=== PATIENT | male | born 1940 | race Caucasian/White ===

== ENCOUNTER → 2018-07-15 16:07 | Outpatient (CLI) | payer MEDICARE, OTHER, SELFPAY ==
[2018-07-15 19:30] LABS: ALB/GLOB Ratio 1.1 RATIO (0.9-2.4); AST(SGOT) 29 U/L (15-37); Alanine Aminotransfer ALT/SGPT 47 U/L (16-61); Alkaline Phosphatase 125 U/L (45-117); Anion Gap 12 (5-15); BUN 13 mg/dL (7-18); BUN/Creat Ratio 12.7 RATIO (10-20); Calcium,Total 9.3 mg/dL (8.5-10.1); Chloride 105 mmol/L (98-107); Creatinine, Serum 1.02 mg/dL (0.70-1.30); EST Glomerular Filtration Rate 75 mL/min (>60); Est Glom Filt Rate - Afr Amer 91 mL/min (>60); Estradiol 30.1 pg/mL; Free T3 2.7 pg/mL (2.18-3.98); Globulin 3.7 g/dL (2.2-4.2); Glucose 86 mg/dL (74-106); Potassium 3.8 mmol/L (3.5-5.1); Protein, Total 7.7 g/dL (6.4-8.2); Sodium Level 142 mmol/L (136-145); T4 Free Direct 1.04 ng/dL (0.76-1.46); Thyroid Stim Hormone (TSH) 1.19 uIU/mL (0.358-3.74)
[2018-07-17 11:25] LABS: Thyroid Peroxidase AB 10 IU/mL (0-34)
== END ==
DX: I10 Essential (primary) hypertension (principal); E03.9 Hypothyroidism, unspecified; Z12.5 Encounter for screening for malignant neoplasm of prostate
CPT/HCPCS: 36415; 80053; 82670; 84153; 84402; 84403; 84439; 84443; 84481; 86376; G0103

== ENCOUNTER 2018-07-31 01:37 | Emergency (ER) | payer MEDICARE, OTHER, SELFPAY ==
[2018-07-31 01:43] VITALS: BP 183/140; PULSE 108; PULSE 114; RESP 18; TEMP 36.8; O2SAT 97; O2SAT 98; BMI 30.8
[2018-07-31] MEDS: Oxymetazoline 0.05% 1 SPRAY SPRAY.BTL 2 SPRAY NASAL (02:10)
--- NOTE | 2018-07-31 02:30 | ED.VISSUMM ---
- ER Visit Summary Date of Service: 07/31/18 Chief Complaint: Nosebleed History of Present Illness: The patient is a 77 M who presents with a nosebleed. He has no known medical history. He began have a nosebleed from the left side 2 hours ago. He has a history of severe nosebleeds previously but not in many years. He believes last episode was 6-7 years ago. He also noted that his blood pressure was elevated at home and on presentation to triage here. He attributes this to a recent high salt intake. He denies headache chest pain or shortness of breath. He denies dizziness. He is on no anticoagulation. Physical Examination: Afebrile initial blood pressure 183/140 initial heart rate 114 There is left-sided epistaxis this appears to be coming from some irritation along the nasal septum Heart regular rate and rhythm Lungs are clear Abdomen soft Alert No focal or lateralizing neurological deficits Test Results: Not indicated Emergency Department Course and Treatment: An Afrin-soaked cotton ball was placed in the left nostril. On reevaluation there continues to be some mild oozing so an anterior Rhino Rocket 5.5 cm packing was placed and hemostasis achieved. He has been monitored and has had no further bleeding. His blood pressure is improved to 143/108. He was advised of his elevated blood pressure and the need to follow-up as an outpatient. Given that he has no headache chest pain or shortness of breath I do not feel any further evaluation is necessary for this. He does understand return for new or worsening symptoms. He was referred to otolaryngology for epistaxis follow-up. Treatment Plan: [] Disposition: Discharge Impression: Elevated blood pressure Epistaxis This note was generated with [employer] dictation software. It may contain incorrect words, spelling, and punctuation that were not noted in review of the chart prior to signing ED Disposition - Plan for ED Patient: Chief Complaint: Nosebleed Referrals: [facility] Doctor,Out of [Primary Care Provider] -
--- NOTE | 2018-07-31 02:34 | DCINST.ED_ITS ---
ED Disposition - Plan for ED Patient: Chief Complaint: Nosebleed Instructions: Nosebleed, ED Hypertension Poss Referrals: [facility] Doctor,Out of [Primary Care Provider] - Nam Shipley MD [STAFF PHYSICIAN] -
[2018-07-31] MEDS: Acetaminophen 500 MG Tablet 1000 MG PO (02:41)
[2018-07-31 03:23] VITALS: BP 130/83; PULSE 90; RESP 22; O2SAT 95
== END 2018-07-31 03:24 | disposition home or self-care (01) ==
PROVIDERS: Emergency Provider Emergency Medicine
DX: R03.0 Elevated blood-pressure reading, without diagnosis of hypertension (principal); R04.0 Epistaxis
CPT/HCPCS: 30901; 99282

== ENCOUNTER 2018-08-02 14:37 | Emergency (ER) | payer MEDICARE, OTHER, SELFPAY ==
[2018-08-02 14:38] VITALS: BP 168/100; PULSE 84; RESP 16; TEMP 36.8; O2SAT 99; BMI 29.8
--- NOTE | 2018-08-02 15:14 | ED.VISSUMM ---
- ER Visit Summary Date of Service: 08/02/18 Chief Complaint: Nasal foreign body History of Present Illness: The patient is a 77 M who was here 2 days ago with a nosebleed and had a rapid Rhino placed in his left nares. Reports that yesterday he removed this. Today he was cleaning up his nose and believes that there is a foreign body present in his nose. He denies any pain. No drainage. No fever or chills. Physical Examination: Vitals: Stable. Afebrile. General: Well-nourished and well-developed. Head: Normocephalic atraumatic. HEENT: The superior portion of the nasal cavity there is what appears to be a foreign body. There is no bleeding. There is no clot. Neck: Supple, no lymphadenopathy. No JVD. Nontender. Cardiovascular: Regular rate and rhythm. No murmurs. Respiratory: No respiratory distress. Clear to auscultation bilaterally. Abdominal: Soft, nontender, nondistended, normal bowel sounds. No guarding, rebound, or peritoneal signs. Back: Nontender. Extremities: Nontender, no edema. Skin: Normal color, no rash. Neurologic: Alert and oriented ?3. Cranial nerves II through XII are intact. Normal strength and sensation. Psych: Normal affect. Emergency Department Course and Treatment: I attempted to remove the foreign body with forceps and hard mucus is what returned. The patient blew his nose and on repeat exam the foreign body had completely resolved. There is still no bleeding. Treatment Plan: I discussed the patient that if there is a foreign body that is not visible at this point that he will likely have malodorous, purulent drainage from the left nares. He is instructed to follow-up with Dr. Shipley if this begins to happen. Return to the emergency department for any worsening symptoms. Disposition: To home in improved and stable condition. Impression: 1. Nasal foreign body, removed. This note was generated with [employer] dictation software. It may contain incorrect words, spelling, and punctuation that were not noted in review of the chart prior to signing ED Disposition - Plan for ED Patient: Disposition: Home or Assisted Living Chief Complaint: Foreign Body Instructions: Foreign Object in the Ear or Nose Referrals: Nam Shipley MD [STAFF PHYSICIAN] - 1 Week if not improving
[2018-08-02 15:36] VITALS: BP 136/82; PULSE 77; RESP 16; O2SAT 98
== END 2018-08-02 15:37 | disposition home or self-care (01) ==
LOC: ED 15:14
PROVIDERS: Emergency Provider Emergency Medicine
DX: T17.1XXA Foreign body in nostril, initial encounter (principal); X58.XXXA Exposure to other specified factors, initial encounter; Y93.89 Activity, other specified; Y92.9 Unspecified place or not applicable; Y99.9 Unspecified external cause status
CPT/HCPCS: 99282

== ENCOUNTER 2019-10-07 08:54 | Emergency (ER) | payer MEDICARE, OTHER, SELFPAY ==
[2019-10-07 08:54] VITALS: BP 171/115; PULSE 95; RESP 16; TEMP 36.2; O2SAT 97; BMI 29.8
--- NOTE | 2019-10-07 09:11 | ED.VISSUMM ---
- ER Visit Summary Date of Service: 10/07/19 Chief Complaint: Nosebleed History of Present Illness: The patient is a 78 M no seen in past medical history. Patient is on no blood thinners. States his last nosebleed was after he got a dose of heparin. Patient states he woke up this morning with bleeding from the left side of his nose. Denies any traumas. No other bleeding. No bruising. No hematuria or melena. No hematemesis. Physical Examination: Well-appearing older male. Vital signs are stable afebrile. He is actively bleeding from the left side of his nose. Some clots. HEENT exam active bleeding from left side nose obviously anterior nasal septum. Small blood in the right but no active bleeding. Posterior pharynx small amount of blood. Lungs clear to auscultation. Heart regular rhythm no murmur. Abdomen soft nontender. Patient moving all 4 extremities. Neurologically is awake and alert. Test Results: None Emergency Department Course and Treatment: Patient has an obvious left-sided anterior nosebleed. He blew his nose remove the clots. I placed cotton balls soaked with Afrin in both sides of his nose. Once we get the bleeding controlled I will place a rapid Rhino anterior pack on the left. Treatment Plan: Pull nasal packing out after 3 days. Antibiotic while packing in place. Disposition: Discharge Impression: Acute anterior nosebleed Rapid Rhino anterior pack placed by ER physician This note was generated with [employer] dictation software. It may contain incorrect words, spelling, and punctuation that were not noted in review of the chart prior to signing ED Disposition - Plan for ED Patient: Referrals: Care Physician,No Primary [Primary Care Provider] -
[2019-10-07 09:14] VITALS: BP 163/115; PULSE 97; RESP 18; O2SAT 98
--- NOTE | 2019-10-07 09:14 | ED.DEP ---
ED Disposition - Plan for ED Patient: Disposition: Home or Assisted Living Instructions: Nosebleed Prescriptions: Smz/Tmp Ds [Bactrim Ds] 1 tab PO BID #6 tab Prescription Printed Referrals: Care Physician,No Primary [Primary Care Provider] - 3-5 Days if not improving Additional Instructions: Pull the packing out in 3 days. Need to be on antibiotic while the packing is in place to prevent a sinus infection. If you rebleed direct pressure to your nose for 30 minutes straight if unable to stop return to the emergency department. Follow-up with ENT as needed.
[2019-10-07 10:11] VITALS: BP 138/106; PULSE 86; RESP 16; O2SAT 99
== END 2019-10-07 10:13 | disposition home or self-care (01) ==
PROVIDERS: Emergency Provider Emergency Medicine
DX: R04.0 Epistaxis (principal)
CPT/HCPCS: 30901; 99282

== ENCOUNTER 2021-08-26 16:54 | Emergency (ER) | payer MEDICARE, OTHER, SELFPAY ==
[2021-08-26 16:55] VITALS: BP 188/157; PULSE 81; RESP 18; TEMP 36.3; O2SAT 100; BMI 29.8
--- NOTE | 2021-08-26 17:19 | EX.ED.GENINJ ---
HPI History of Present Illness Chief Complaint: Laceration Informant: patient and spouse/S.O. Narrative Narrative: Patient was reaching for something in the back of an SUV. The back catch was coming down with electrical power. The corner of it hit the top of his head. He did not get knocked out nor fall to the ground. No nausea vomiting headache. He is asymptomatic. Bleeding was controlled just with pressure. He is acting totally normally per his . He is not on blood thinners. Nothing makes it worse. Just mild pressure made it better. Past medical history is blood pressure Medications hydrochlorothiazide Allergy to penicillin No recent surgeries [facility] Medical History no medical history Home Medications Muscle Relaxer 10/07/19 [History Last Taken Unknown] Allergy/AdvReac Type Severity Reaction Status Date / Time Penicillins Allergy Anaphylaxis Verified 10/07/19 08:54 Social History Smoking Status: Never smoker ROS ROS ED Eyes Eyes: Denies blurry vision or change in vision ENT ENT ED: Denies sore throat Gastrointestinal Gastrointestinal: Denies nausea or vomiting Musculoskeletal Musculoskeletal: Denies back pain or neck pain Integumentary Reports other Details: Laceration top of scalp. Neurologic Neurologic: Denies headache(s), paresthesias or weakness Hematologic/Lymphatic Hematologic/Lymphatic: Denies easy bleeding or easy bruising EXAM Physical Exam Const Vital Signs: 08/26/21 16:55 Temperature 97.4 F L Temperature Source Temporal Pulse Rate 81 Respiratory Rate 18 Blood Pressure 188/157 H Blood Pressure Mean 167 Pulse Ox 100 Oxygen Delivery Method Room Air Positive well nourished and well developed General Appearance ED: well developed and NAD HEENT HEENT Narrative: Patient has a T shaped laceration on the top of the scalp. It is about 0.75 cm across the top of the T and about 1-1/2 cm down. It opens up just in the central area slightly. No active bleeding. No step-off. There is some contused and abraded tissue. trauma Eyes EOMs intact bilaterally Neck full ROM General: Negative for tenderness Resp normal respiratory effort Cardio Rate: regular rate Neuro oriented x3 Sensorium / Orientation: alert; Negative for lethargic Psych mental status grossly normal Skin Skin Narrative: Laceration as above. MDM MDM MDM Narrative Medical decision making narrative: Procedure: Stable laceration: Area around the wound was cleansed and irrigated and washed off. I discussed options with the patient. I think this only needs a staple. So we chose to do this without anesthesia. A single staple was placed with good cosmesis. No bleeding. He tolerated it very well. The area is clean. No bleeding. We discussed care and removal. I do not think this patient needs CAT scan. If he develops headache, nausea, vomiting, weakness, change in normal behavior or any other concerns they should return. Discharge Plan Triage Chief Complaint: Laceration ED Provider: Jonnathan Hill Dx/Rx/DC Orders Clinical Impression: Laceration of scalp Instructions: ED Laceration Scalp Stitches or Ida Prescriptions: No Action Muscle Relaxer RF: 0 Primary Care Provider: Care Physician,No Primary Referrals: Care Physician,No Primary [Primary Care Provider] - Activity Restrictions/Additional Instructions: Follow-up with your physician in approximately 5 days for staple removal. Disposition Disposition: Home, Self Care
== END 2021-08-26 17:37 | disposition home or self-care (01) ==
PROVIDERS: Emergency Provider Emergency Medicine
DX: S01.01XA Laceration without foreign body of scalp, initial encounter (principal); X58.XXXA Exposure to other specified factors, initial encounter
CPT/HCPCS: 12001; 99283

== ENCOUNTER 2021-09-01 19:58 | Emergency (ER) | payer MEDICARE, OTHER, SELFPAY ==
[2021-09-01 19:59] VITALS: BP 177/107; PULSE 71; RESP 16; TEMP 36.1; O2SAT 100; BMI 32.2
--- NOTE | 2021-09-01 21:24 | EX.ED.DYSGE1 ---
HPI History of Present Illness Chief Complaint: Wound Narrative Narrative: Patient had a fall sustaining a laceration to the scalp about 5 days ago. He states is been healing well. Is not any bleeding or sign of infection. He denies any headache, dizziness, lightheadedness. He is here today for staple removal. [facility] Home Medications Muscle Relaxer 10/07/19 [History Last Taken Unknown] Allergy/AdvReac Type Severity Reaction Status Date / Time Penicillins Allergy Anaphylaxis Verified 09/01/21 19:59 Social History Smoking Status: Never smoker ROS ROS ED Constitutional Constitutional ED: Denies chills, fever(s) or sweats Eyes Eyes: Denies blurry vision or change in vision ENT ENT ED: Denies ear pain or sore throat Cardiovascular Cardiovascular: Denies chest pain, palpitations or racing heartbeat Respiratory/Chest Respiratory/Chest: Denies cough, dyspnea or sputum Gastrointestinal Gastrointestinal: Denies abdominal pain, constipation, diarrhea, nausea or vomiting Genitourinary Genitourinary ED: Denies dysuria, hematuria or urinary frequency Musculoskeletal Musculoskeletal: Denies arthralgias, myalgias or neck pain Integumentary Reports other Details: Healing laceration scalp ; Denies abscess or rash Neurologic Neurologic: Denies headache(s), paresthesias or weakness Psychiatric Psychiatric: Denies anxiety, depression, suicidal ideation or suicidal thoughts Endocrine Endocrinology: Denies polydipsia or polyuria EXAM Physical Exam Const Vital Signs: 09/01/21 19:59 Temperature 97 F L Temperature Source Temporal Pulse Rate 71 Respiratory Rate 16 Blood Pressure 177/107 H Blood Pressure Mean 130 Pulse Ox 100 Oxygen Delivery Method Room Air Positive well nourished General Appearance ED: NAD HEENT Negative for trauma Eyes PERRL and EOMs intact bilaterally Resp normal respiratory effort Cardio regular rate and regular rhythm Neuro oriented x3 and CN's II-XII intact bilaterally Sensorium / Orientation: alert Skin Skin Narrative: Small laceration to scalp appears well-healing. [address] No sign of infection. MDM MDM MDM Narrative Medical decision making narrative: Area surrounding the staple was cleaned. The staple was removed without sequela. Patient tolerated this well. Patient counseled on wound care monitor for signs of infection. He is discharged home in stable condition. Impression: 1. Stable removal Discharge Plan Triage Chief Complaint: Wound ED Provider: Zane Wilson Dx/Rx/DC Orders Instructions: ED Staple Removal, No Complication Prescriptions: No Action Muscle Relaxer RF: 0 Primary Care Provider: Care Physician,No Primary Referrals: Care Physician,No Primary [Primary Care Provider] - Disposition Disposition: Home, Self Care
[2021-09-01 21:28] VITALS: BP 206/116
[2021-09-01 21:30] VITALS: BP 206/116
== END 2021-09-01 21:30 | disposition home or self-care (01) ==
LOC: ED 21:22
PROVIDERS: Emergency Provider Student in an Organized Health Care Education/Training Program
DX: Z48.02 Encounter for removal of sutures (principal)
CPT/HCPCS: 99282

== ENCOUNTER 2023-04-09 01:33 | Observation (INO) | payer MEDICARE, SELFPAY ==
[2023-04-09] VITALS (13 sets, daily range): BP systolic 151–209; BP diastolic 78–125; PULSE 64–75; RESP 13–17; TEMP 35.9–36.7; O2SAT 93–99; BMI 34.0; BMI 32.5
--- NOTE | 2023-04-09 01:36 | CT_ITS ---
We are attempting to reach an attending provider to discuss findings. An addendum with communication details will be sent when the communication is complete. EXAM: CT ANGIOGRAPHY HEAD AND NECK WITH INTRAVENOUS CONTRAST CLINICAL INDICATION: Neuro deficit, acute, stroke suspected -- Vertigo with central gaze nystagmus and visual marianne TECHNIQUE: [place] [facility] [place]/head and neck CT angiography protocol performed with intravenous contrast. CTDIvol = ( 26.26 ) mGy, DLP = ( 828.55 ) mGycm This CT exam was performed using one or more of the following dose reduction techniques: automated exposure control, adjustment of the mA and/or kV according to patient size, and/or use of iterative reconstruction technique. MIP reconstructed images were created and reviewed. CONTRAST: IV 100mL [id number] COMPARISON: No relevant prior studies available. FINDINGS: HEAD: RIGHT ANTERIOR CEREBRAL ARTERY: Unremarkable. No significant stenosis at the visualized segments. Anterior communicating artery is present. No aneurysm. RIGHT MIDDLE CEREBRAL ARTERY: Unremarkable. No significant stenosis at the visualized segments. No aneurysm. RIGHT POSTERIOR CEREBRAL ARTERY: Unremarkable. No occlusion or significant stenosis. No aneurysm. RIGHT INTRACRANIAL INTERNAL CAROTID ARTERY: Unremarkable. No significant stenosis. No dissection or occlusion. RIGHT INTRACRANIAL VERTEBRAL ARTERY: Unremarkable. No significant stenosis. No dissection or occlusion. LEFT ANTERIOR CEREBRAL ARTERY: Unremarkable. No significant stenosis at the visualized segments. No aneurysm. LEFT MIDDLE CEREBRAL ARTERY: Unremarkable. No significant stenosis at the visualized segments. No aneurysm. LEFT POSTERIOR CEREBRAL ARTERY: Unremarkable. No occlusion or significant stenosis. No aneurysm. LEFT INTRACRANIAL INTERNAL CAROTID ARTERY: Unremarkable. No significant stenosis. No dissection or occlusion. LEFT INTRACRANIAL VERTEBRAL ARTERY: Unremarkable. No significant stenosis. No dissection or occlusion. BASILAR ARTERY: Unremarkable. No significant stenosis. No aneurysm. OTHER VASCULATURE: Mild atherosclerotic calcifications of the carotid siphons with no significant luminal narrowing. No vascular malformation. BRAIN AND EXTRA-AXIAL SPACES: For intracranial findings, please see same-day head CT. NECK: RIGHT COMMON CAROTID ARTERY: Unremarkable. No significant stenosis. No dissection or occlusion. RIGHT EXTRACRANIAL INTERNAL CAROTID ARTERY: Unremarkable. No significant stenosis. No dissection or occlusion. RIGHT EXTERNAL CAROTID ARTERY: Unremarkable. No occlusion. RIGHT EXTRACRANIAL VERTEBRAL ARTERY: Unremarkable. No significant stenosis. No dissection or occlusion. LEFT COMMON CAROTID ARTERY: Unremarkable. No significant stenosis. No dissection or occlusion. LEFT EXTRACRANIAL INTERNAL CAROTID ARTERY: Unremarkable. No significant stenosis. No dissection or occlusion. LEFT EXTERNAL CAROTID ARTERY: Unremarkable. No occlusion. LEFT EXTRACRANIAL VERTEBRAL ARTERY: Unremarkable. No significant stenosis. No dissection or occlusion. BRACHIOCEPHALIC AND SUBCLAVIAN ARTERIES: Unremarkable as visualized. No occlusion or significant stenosis. LUNG APICES: Unremarkable as visualized. HEAD and NECK: BONES/JOINTS: Degenerative changes of the spine at multiple levels. No discrete lytic or blastic abnormalities. SOFT TISSUES: Unremarkable. CAROTID STENOSIS REFERENCE USING NASCET CRITERIA: % ICA stenosis = (1 - narrowest ICA diameter/diameter of distal cervical ICA) x 100. Mild - <50% stenosis. Moderate - 50-69% stenosis. Severe - 70-94% stenosis. Near occlusion - 95-99% stenosis. Occluded - 100% stenosis. CT/STROKE CTA Head AND Neck W/Con IMPRESSION: No significant stenosis, thrombosis or aneurysm or dissection. Electronically Signed: Prateek Ray MD at 2:17 EDT ,
--- NOTE | 2023-04-09 01:36 | EKG12_ITS ---
Test Reason : NEURO Blood Pressure : / mmHG Vent. Rate : 071 BPM Atrial Rate : 071 BPM P-R Int : 222 ms QRS Dur : 124 ms QT Int : 432 ms P-R-T Axes : 046 -20 -03 degrees QTc Int : 469 ms Sinus rhythm with 1st degree A-V block Non-specific intra-ventricular conduction delay Borderline ECG Confirmed by ANDRES BLEDSOE, OMAYRA ([id number]), purchase request editor MELIZA RUSSELL ([id number]) on 04/10/2023 8:51:24 AM Referred By: ANDREW Confirmed By:OMAYRA CAMPOS MD
--- NOTE | 2023-04-09 01:36 | RAD_ITS ---
EXAM: XR CHEST, 1 VIEW CLINICAL INDICATION: Neuro deficit, acute, stroke suspected TECHNIQUE: Frontal view of the chest. COMPARISON: No relevant prior studies available. FINDINGS: LUNGS AND PLEURAL SPACES: Nodular opacity measuring up to 2.3 cm at the level of the peripheral left base may represent a focal infiltrate versus pulmonary nodule. Consider follow-up. No pneumothorax. No effusion. HEART: Unremarkable. Cardiac silhouette not enlarged. MEDIASTINUM: Central airways and mediastinal contour are unremarkable. BONES/JOINTS: Degenerative changes of the spine. SOFT TISSUES: Unremarkable. VASCULATURE: Ectatic thoracic aortic arch with atherosclerotic calcifications. RAD/Chest 1 View IMPRESSION: 1. Nodular opacity measuring up to 2.3 cm at the level of the peripheral left base may represent a focal infiltrate versus pulmonary nodule. Consider follow-up. 2. No other acute cardiopulmonary disease. Electronically Signed: Prateek Ray MD at 2:46 EDT ,
--- NOTE | 2023-04-09 01:36 | CT_ITS ---
EXAM: CT HEAD WITHOUT INTRAVENOUS CONTRAST CLINICAL INDICATION: Neuro deficit, acute, stroke suspected TECHNIQUE: Multiple axial images were obtained of the head without intravenous contrast. CTDIvol = ( 44 ) mGy, DLP = ( 863 ) mGycm This CT exam was performed using one or more of the following dose reduction techniques: automated exposure control, adjustment of the mA and/or kV according to patient size, and/or use of iterative reconstruction technique. COMPARISON: No relevant prior studies available. FINDINGS: BRAIN AND EXTRA-AXIAL SPACES: Periventricular small vessel ischemic change. No midline shift or hydrocephalus. Diffuse parenchymal atrophy. Posterior fossa structures are unremarkable. Basal cisterns are patent. No acute intracranial hemorrhage, mass effect or edema. No evidence of acute cortical stroke. BONES/JOINTS: Unremarkable. No discrete lytic or blastic abnormalities. VASCULATURE: Atherosclerotic calcifications of the carotid siphons and vertebrobasilar arteries. SINUSES: Unremarkable as visualized. Clear. MASTOID AIR CELLS: Visualized sinuses and mastoid air cells are clear. ORBITS: Visualized globes, extraocular muscles, optic nerves and retrobulbar fat appear unremarkable. CT/STROKE Brain/Head without Cont IMPRESSION: 1. No evidence of acute intracranial pathology. 2. Diffuse involutional changes and chronic ischemic small vessel white matter disease. Stroke ASPECTS score 10. AIDOC was utilized to assist in identifying pertinent positive findings. N.B. : The above Results were Read Back by Prateek Ray MD to Markell Sandoval MD, and understanding confirmed on 04/09/2023 01:52:19 (ET). Electronically Signed: Prateek Ray MD at 1:51 EDT ,
--- NOTE | 2023-04-09 01:53 | EDS_ITS ---
HPI History of Present Illness Chief Complaint: Dizziness Detail of Chief Complaint: Vertigo, change in vision, unable to ambulate Informant: patient, spouse/S.O. and EMS Onset/Context/Timing Onset: Today (Patient states 1800, states 2129, paramedics stated 2329.) Context: Sudden Onset Timing: Continuous Quality and Location: Positive for Difficulty with Ambulation Onset: Patient does have mild dementia. Please read detailed in HPI narrative Current Severity: Mild Maximum Severity: Moderate Worsened by: Attempt to walk Relieved by: Nothing Associated Symptoms Associated Symptoms: Positive for Nausea; Negative for Headache, Vomiting or Chest Pain Narrative Narrative: Patient is an 82-year-old male with history of mild dementia, hypertension hypercholesterolemia who presents with vertigo. He states things are spinning. He states things are spinning even if he remains still. He does report bilateral eye blurriness. He did not endorse double vision. He denies headache. Does report nausea without vomiting. Denies ringing's ears or decreased hearing. No trouble speech or swallowing. He denies paresthesia, anesthesia or motor weakness. Paramedics states he was unable to stand up to walk to the cot. There is no recent history of trauma. White believes his symptoms started 2129; however, he may not have told her. Even though he has dementia he is oriented to name, age, place and name. He does not know the month. states this is not abnormal for him. Prior similar symptoms: No Recent Illness/Hospitalization: No [facility] Medical History (Updated 04/09/23 @ 02:[address] Markell Sandoval MD) Hyperlipidemia Hypertension Home Medications hydrochlorothiazide 12.5 mg tablet 12.5 mg PO DAILY 04/09/23 [History Last Taken Unknown] rosuvastatin 5 mg tablet 5 mg PO QHS 04/09/23 [History Last Taken Unknown] Allergy/AdvReac Type Severity Reaction Status Date / Time Penicillins Allergy Anaphylaxis Verified 04/09/23 01:48 Social History (Updated 04/09/23 @ 01:[address] Markell Sandoval MD) household members: spouse Smoking Status: Never smoker ROS ROS ED Review of Systems ROS Unobtainable: due to mental status Constitutional Constitutional ED: Denies chills, fever(s) or subjective Eyes Eyes: Reports blurry vision bilateral and change in vision bilateral ENT ENT ED: Reports other Details: No decreased hearing or ringing in the ears. ; Denies ear pain, rhinorrhea or sore throat Cardiovascular Cardiovascular: Denies chest pain, palpitations or paroxysmal nocturnal dyspnea Respiratory/Chest Respiratory/Chest: Denies cough, dyspnea, dyspnea on exertion or paroxysmal nocturnal dyspnea Gastrointestinal Gastrointestinal: Reports nausea; Denies abdominal pain or vomiting Genitourinary Genitourinary ED: Denies dysuria, hematuria or urinary frequency Musculoskeletal Musculoskeletal: Denies arthralgias or myalgias Integumentary Denies rash Neurologic Neurologic: Denies headache(s), paresthesias or weakness Psychiatric Psychiatric: Denies anxiety Endocrine Endocrinology: Denies polydipsia, polyphagia or polyuria Hematologic/Lymphatic Hematologic/Lymphatic: Denies easy bleeding or easy bruising EXAM Physical Exam Const Vital Signs: 04/09/23 01:36 04/09/23 01:33 04/09/23 01:36 Temperature 96.7 F L 96.9 F L Temperature Source Temporal Temporal Pulse Rate 74 72 Respiratory Rate 13 15 Blood Pressure 159/92 H Blood Pressure Mean 114 Pulse Ox 94 94 94 Oxygen Delivery Method Room Air Room Air Room Air 04/09/23 01:36 04/09/23 02:06 Temperature Temperature Source Pulse Rate 71 72 Respiratory Rate 15 17 Blood Pressure 156/90 H 153/97 H Blood Pressure Mean 112 115 Pulse Ox 93 93 Oxygen Delivery Method Room Air Room Air Positive well nourished, well developed and obese Constitutional Narrative: Affect is flat. Patient appears slightly ill but not toxic. General Appearance ED: well developed Nutritional Appearance: obese HEENT Reports TM's clear and moist mucous membranes atraumatic Tympanic Membrane ED: Yes TM's clear Eyes PERRL and EOMs intact bilaterally Eyes Narrative: Patient has nystagmus with central gaze with fast component to the right. General Eye ED: Negative for pale conjunctiva or scleral icterus Neck no lymphadenopathy, supple and no JVD Chest Wall inspection of chest normal and palpation of chest normal Resp normal respiratory effort and clear to auscultation bilaterally Cardio no murmurs Rate: regular rate Rhythm: regular rhythm Heart Sounds: S1 normal and S2 normal GI normal to inspection, nondistended, normoactive bowel sounds, soft to palpation, non-tender, non-distended and no masses Back/Spine no CVA tenderness Extremity normal to inspection General Extremety ED: Negative for deformity, edema or tenderness General Extremity: Negative for deformity or edema Neuro No oriented x3, CN's II-XII intact bilaterally and no sensory deficits noted Orlin Coma Scale: document GCS findings Spontaneous Obeys Commands Confused 14 Sensorium / Orientation: alert Speech: speech normal Gait (Neuro): Negative for normal gait Motor Exam: strength 5/5 throughout Psych mental status grossly normal Psych Narrative: Affect is flat. Skin no wounds General Skin Exam: Negative for jaundice Lesions: no lesions Rashes: no rashes NIHSS NIHSS Initial: 1a Level of Consciousness: 0 1b LOC Questions (Score 2 if aphasic/stupor): 1 1c LOC Commands (Only score 1st attempt): 0 2 Best Gaze (If aphasic, use reflexive mvmts.): 0 3 Visual: 0 4 Facial Palsy: 0 5 Motor Arm Right (UN = amputation/fusion): 0 5 Motor Arm Left: 0 6 Motor Leg Right: 0 6 Motor Leg Left: 0 7 Limb ataxia (Only + if out of proportion): 0 8 Sensory (Aphasia/stupor=0 or 1, coma=2): 0 9 Best Language: 0 Total Score: 1 MDM MDM MDM Narrative Medical decision making narrative: Stroke team was called. Since onset is in question and may have been 4-1/2-8+ hours since onset patient not a candidate for thrombolytics. History & Record Review Discussion w/independent historian: EMS personnel, Patient and Significant other Additional record(s) reviewed:: Prior ED visit and Prior labs Lab Data Attestation: I reviewed the patient's lab results. Lab results narrative: CBC, BMP are couple. Glucose is 106. Glucose on BMP is 158 with normal CO2 anion gap. Labs: Laboratory Results - last 24 hr 04/09/23 04/09/23 04/09/23 01:49 01:55 01:55 WBC 5.5 RBC 4.46 L Hgb 13.2 Hct 40.7 MCV 91.3 MCH 29.6 MCHC 32.4 RDW Std Deviation 49.0 H RDW Coeff of Dori 14.6 Plt Count 169 MPV 9.6 Immature Gran % (Auto) 0.500 Neut % (Auto) 70.3 H Lymph % (Auto) 19.7 [place] % (Auto) 6.6 Eos % (Auto) 2.4 Baso % (Auto) 0.5 Absolute Neuts (auto) 3.8 Absolute Lymphs (auto) 1.08 Nucleated RBC % 0 Sodium 141 Potassium 3.4 L Chloride 108 H Carbon Dioxide 26.0 Anion Gap 7 BUN 16 Creatinine 0.89 Estim Creat Clear Calc 71.45 Est GFR (MDRD) Af Amer 105 Est GFR (MDRD) Non-Af 87 BUN/Creatinine Ratio 18.0 Glucose 158 H Calcium 8.8 Troponin I High Sens 8 POC Glucose 166 H Radiography Chest X-Ray - ED: 1 View, Read by ED Physician (Chest x-ray reveals borderline cardiomegaly. There is evidence of granulomatous tissue peripherally left lower lobe. There is no into heart failure, infiltrate or effusion. Hilar regions unremarkable. Structures unremarkable. This is independently reviewed and interpreted by me at 0221.) and Read by Radiologist Diagnostic Testing: Clinical Impression(s) from Imaging Studies Head/Neck CTA 04/09/23 01:36 IMPRESSION: No significant stenosis, thrombosis or aneurysm or dissection. Electronically Signed: Prateek Ray MD at 2:17 EDT Reading Location ID and State: [facility] / [place] Tel , Service support , Rhythm Strip Rhythm Strip: Sinus Rhythm Rate: 77 Ectopy: None EKG Initial EKG: Attestation: I personally reviewed and interpreted this EKG as follows: Interpretation: Sinus Rhythm (Rate is 71 with a first-degree AV block. LA interval is 222 ms. QRS duration is 124 ms. There is evidence of left anterior fascicular block/nonspecific interventricular conduction delay. QT interval is 432 ms. [place] is to the left.) Management Discussion w/another healthcare provider: Hospitalist and Radiologist (I was contacted by radiologist and informed the unenhanced scan was negative.) Stroke Documentation Questions Stroke Team Activated: Yes Reviewed Inclusion/Exclusion criteria: Yes IV Thrombolytic Administered: No No contraindications from thrombolytic administration: No (Patient is outside of the window because Onset time is unknown) Risks, Benefits, Alternatives Discussed: No Discharge Plan Dx/Rx/DC Orders Clinical Impression: Vertigo, Unable to ambulate, Hypertension, Hypercholesterolemia, Nystagmus associated with central vestibular disorder Disposition Disposition: Acute Care Hospital [facility]
[2023-04-09 02:00] LABS: Absolute Lymphocyte Count 1.08 X10^3/uL (0.83-4.51); Absolute Neutrophil Count 3.8 X10^3/uL (2.0-7.7); Basophil# 0.03 X10^3/uL; Basophil% 0.5 % (0-1); Eosinophil# 0.13 X10^3/uL; Eosinophils% 2.4 % (0-5); Hematocrit 40.7 % (40-54); Hemoglobin 13.2 g/dL (13.0-16.5); Lymphocyte # 1.08 X10^3/ul (0.83-4.51); Lymphocyte % 19.7 % (19-41); Mean Corp Hgb Conc 32.4 g/dL (32-36); Mean Corpuscular Hgb 29.6 pg (27.0-32.0); Mean Corpuscular Volume 91.3 fL (80-94); Mean Platelet Vol. 9.6 fl (6.2-12.0); Monocyte# 0.36 X10^3/uL; Monocyte% 6.6 % (0-10); NRBC Flagged by Analyzer 0 % (0-5); Neutrophil # 3.84 X10^3/uL (2.7-7.7); Neutrophil % 70.3 % (47-70); Platelet Count 169 K/mm3 (150-450); RBC Distribution Width CV 14.6 % (11.6-14.6); Red Blood Count 4.46 M/mm3 (4.6-6.2); White Blood Count 5.5 K/mm3 (4.4-11.0)
[2023-04-09 02:07] LABS: Bedside Glucose 166 mg/dL (74-106)
[2023-04-09 02:18] LABS: Anion Gap 7 (5-15); BUN 16 mg/dL (7-18); Calcium,Total 8.8 mg/dL (8.5-10.1); Chloride 108 mmol/L (98-107); Creatinine, Serum 0.89 mg/dL (0.70-1.30); EST Glomerular Filtration Rate 87 mL/min (>60); Est Glom Filt Rate - Afr Amer 105 mL/min (>60); Estimated Creatinine Clearance 71.45 ml/min; Glucose 158 mg/dL (74-106); Potassium 3.4 mmol/L (3.5-5.1); Sodium Level 141 mmol/L (136-145); Troponin-I HS 8 pg/mL (3.0-78.0)
--- NOTE | 2023-04-09 02:25 | MRI_ITS ---
HISTORY: TIA vs stroke evaluation. TECHNIQUE: Multiplanar and multisequence MR images of the brain were obtained without contrast. 294 images. COMPARISON: CT earlier same day. FINDINGS: BRAIN PARENCHYMA: Mild chronic white matter changes. Chronic right basal ganglia lacunar infarct. No abnormal focus of restricted diffusion. No acute intracranial hemorrhage identified. Old right occipital microhemorrhage. CSF SPACES: Generalized volume loss. No significant midline shift or other mass effect.No extra-axial fluid collection. VASCULAR SYSTEM: Major intracranial flow voids are maintained. PARANASAL SINUSES AND MASTOID AIR CELLS: No significant air fluid levels. ORBITS: Bilateral lens resections. MRI/Brain without Contrast IMPRESSION: No evidence for acute infarct. Chronic involutional and white matter changes. Electronically Signed: Daphne Oscar MD at 12:47 EDT ,
--- NOTE | 2023-04-09 02:26 | ECHOCS_ITS ---
Reason For Study: CHF Procedure This was a 2D Doppler, Color Flow transthoracic echocardiogram. The study was technically difficult. Contrast injection was performed. Exam performed portable in patient room. Left Ventricle Normal LV size. Left ventricular systolic function is normal. The estimated ejection fraction is 60 %. Stage 1 diastolic dysfunction. No regional wall motion abnormalities noted. Right Ventricle Normal RV size. Normal systolic function. Atria Normal left atrium. Normal right atrium. Mitral Valve Normal mitral valve. Tricuspid Valve Normal tricuspid valve. Aortic Valve Trisinus/trileaflet aortic valve. Pulmonic Valve Normal pulmonic valve. Great Vessels Mildly dilated aortic root. The pulmonary artery is normal size. Normal inferior vena cava. Pericardium/Pleural No pericardial effusion. Medication Diluted definity 4ml given slow IV push to enhance endocardial definition. MMode/2D Measurements & Calculations LVIDd: 4.7 cm IVSd: 1.1 cm Ao root diam: 4.0 cm LVIDs: 3.3 cm LVPWd: 1.5 cm FS: 30.0 % LAV(MOD-bp): 60.7 ml LVAd ap4: 31.9 cm2 SV(MOD-sp4): 63.6 ml LAV(MOD-bp) Indexed: 25.9 ml/m2 LVLd ap4: 8.4 cm LAV(MOD-sp2): 67.7 ml EDV(MOD-sp4): 99.8 ml LAV(MOD-sp4): 55.5 ml EDV(sp4-el): 103.6 ml LVAs ap4: 16.3 cm2 LVLs ap4: 6.2 cm ESV(MOD-sp4): 36.2 ml ESV(sp4-el): 36.4 ml EF(MOD-sp4): 63.7 % EF(sp4-el): 64.8 % SV(sp4-el): 67.2 ml LA A4 area: 21.0 cm2 LA dimension(2D): 4.6 cm Time Measurements MV dec time: 0.20 sec Doppler Measurements & Calculations MV E max andre: 52.8 cm/sec Lat Peak E' Andre: 8.7 cm/sec Med Peak E' Andre: 7.1 cm/sec MV A max andre: 90.0 cm/sec E/E' lat: 6.1 E/E' med: 7.4 MV E/A: 0.59 MV V2 max: 85.2 cm/sec Ao V2 max: 114.2 cm/sec MV max P.9 mmHg MV dec slope: 261.0 cm/sec2 Ao max P.3 mmHg MV V2 mean: 54.8 cm/sec Ao V2 mean: 74.1 cm/sec MV mean P.3 mmHg Ao mean P.6 mmHg MV V2 VTI: 20.2 cm Ao V2 VTI: 23.9 cm AV (velocity ratio): 0.84 LV V1 max: 92.7 cm/sec PA V2 max: 105.9 cm/sec LV V1 max P.4 mmHg PA V2 mean: 67.2 cm/sec LV V1 mean P.0 mmHg LV V1 mean: 66.4 cm/sec LV V1 VTI: 20.1 cm ECHO/Echo Complete W/ Contrast Interpretation Summary Left ventricular systolic function is normal. The estimated ejection fraction is 60 %. Normal LV size. Stage 1 diastolic dysfunction. Contrast injection was performed. Ordering Physician: Alfonso Casanova Referring Physician: [facility] Performed By: Ariana Duke RCS
--- NOTE | 2023-04-09 02:31 | HP.PCM.HOS_ITS ---
HPI - General General Date of Admission: 04/09/23 Date of Service: 04/09/23 Chief Complaint: severe dizziness HPI Narrative JOSÉ MIGUEL BRAVO, is a 82 M who presents with severe vertigo. Patient stated things are spinning. He also had blurry vision without headache. He was wretching with nausea. He has never had dizziness prior. He has no other hx of stroke. No history of cardiac problems. There was no numbness or tingling in his extremities. Only medications patient takes include statin and thiazide. He was unable to walk to ambulance. These symptoms started yesterday at [address] head unremarkable. CTA head and neck was unrevealing. EKG showed normal sinus rhythm. He improved slightly in ED. He could sit up after several hours of observation. [facility] Medical History Hyperlipidemia Hypertension Home Medications hydrochlorothiazide 12.5 mg tablet 12.5 mg PO DAILY 04/09/23 [History Last Taken Unknown] rosuvastatin 5 mg tablet 5 mg PO QHS 04/09/23 [History Last Taken Unknown] Allergy/AdvReac Type Severity Reaction Status Date / Time Penicillins Allergy Anaphylaxis Verified 04/09/23 01:48 Social History (Updated 04/09/23 @ 04:01 by Richelle Wood) household members: spouse number of children: 2 Smoking Status: Former smoker ROS ROS Narrative pertinent negatives and positives. Vital Signs Vital Signs Vital Signs: 04/09/23 01:36 04/09/23 01:33 04/09/23 01:36 Temperature 96.7 F L 96.9 F L Temperature Source Temporal Temporal Pulse Rate 74 72 Respiratory Rate 13 15 Blood Pressure 159/92 H Blood Pressure Mean 114 Pulse Ox 94 94 94 Oxygen Delivery Method Room Air Room Air Room Air 04/09/23 01:36 04/09/23 02:06 Temperature Temperature Source Pulse Rate 71 72 Respiratory Rate 15 17 Blood Pressure 156/90 H 153/97 H Blood Pressure Mean 112 115 Pulse Ox 93 93 Oxygen Delivery Method Room Air Room Air Weight Weight: 250 lb 14.177 oz Body Mass Index (BMI) 34.0 Physical Exam Const alert Constitutional Narrative: wretching, dry heaves HEENT normocephalic, head/scalp atraumatic and moist oral mucous membranes Eyes PERRL Neck no lymphadenopathy Resp normal respiratory effort and no retractions Cardio regular rate and regular rhythm GI normal to inspection, nondistended, normoactive bowel sounds Extremity normal to inspection and no clubbing, cyanosis or edema Neuro Neuro Narrative: normal hip flexion b/l, 5/5 hand squeeze. normal symmetry of face w/o droop Sensation of face intact bilaterally. There were no tremors or twitching. Horizontal nystagmus with rapid correction to the right. This is seen in both eyes. Sensorium / Orientation: awake and alert Psych affect normal Results Medical Records Data Attestation: I reviewed the patient's medical records Lab / Micro Data Attestation: I reviewed the patient's lab results. Result Diagrams: 04/09/23 01:55 04/09/23 01:55 Labs: Laboratory Results - last 24 hr 04/09/23 01:49: POC Glucose 166 H 04/09/23 01:55: WBC 5.5, RBC 4.46 L, Hgb 13.2, Hct 40.7, MCV 91.3, MCH 29.6, MCHC 32.4, RDW Std Deviation 49.0 H, RDW Coeff of Dori 14.6, Plt Count 169, MPV 9.6, Immature Gran % (Auto) 0.500, Neut % (Auto) 70.3 H, Lymph % (Auto) 19.7, [place] % (Auto) 6.6, Eos % (Auto) 2.4, Baso % (Auto) 0.5, Absolute Neuts (auto) 3.8, Absolute Lymphs (auto) 1.08, Nucleated RBC % 0 04/09/23 01:55: Sodium 141, Potassium 3.4 L, Chloride 108 H, Carbon Dioxide 26.0, Anion Gap 7, BUN 16, Creatinine 0.89, Estim Creat Clear Calc 71.45, Est GFR (MDRD) Af Amer 105, Est GFR (MDRD) Non-Af 87, BUN/Creatinine Ratio 18.0, Glucose 158 H, Calcium 8.8, Troponin I High Sens 8 Rhythm Strip Rhythm Strip: Sinus Rhythm Rate: 77 Ectopy: None Radiology Impression Head/Neck CTA 04/09/23 01:36 IMPRESSION: No significant stenosis, thrombosis or aneurysm or dissection. Electronically Signed: Prateek Ray MD at 2:17 EDT , ADDENDUM: 04/09/23227 IMPRESSION: No significant stenosis, thrombosis or aneurysm or dissection. N.B. : The above Results were Read Back by Prateek Ray MD to Markell Sandoval MD, and understanding confirmed on 04/09/2023 02:22:03 (ET). Electronically Signed: Prateek Ray MD at 2:17 EDT , Assessment & Plan Assessment/Plan (1) Nystagmus associated with central vestibular disorder: (2) Unable to ambulate: (3) Vertigo: (4) Hypercholesterolemia: (5) Hypertension: PLAN: Plan Severe dizziness vertigo light sensitivity No focal deficits to suggest stroke however with significant duration of vertigo and symptoms will pursue MRI at this time, and make sure no posterior stroke. MRI, Echo, PT, OT, speech evaluation. Check Lipid panel, A1c Fall precautions Neurology consult for evaluation of vertigo aspiration precautions Telemetry x 24 hours Give aspirin x 1 dose HTN -Resume home medication -He is hypertensive here 153/97 HLD -High intensity statin Full Code and d/w patient Charges/Coding Visit Charges Inpatient E&M: 04085 Init Hosp L2
[2023-04-09 02:34] LABS: International Normalized Ratio 1.2
[2023-04-09 02:35] LABS: Partial Thromboplast Time 29.6 Seconds (24.1-36.2)
[2023-04-09] MEDS: Ondansetron 4 MG/2 ML Vial 8 MG IV (02:56)
[2023-04-09] MEDS: Meclizine HCl 25 MG Tablet PO ×2 (05:06→08:33)
[2023-04-09] MEDS: Atorvastatin Calcium 40 MG Tablet PO ×2 (05:07→22:44)
[2023-04-09] MEDS: Aspirin 81 MG TAB.CHEW PO (05:07)
[2023-04-09 06:42] LABS: Cholesterol 131 mg/dL (200); High Density Lipoprotein 53 mg/dL; Triglycerides 54 mg/dL; Very Low Density Lipoprotein 11 mg/dL (5-40)
--- NOTE | 2023-04-09 07:29 | PCM.PN.HOSP ---
Reason for Visit Reason for Visit: Diagnoses Pure hypercholesterolemia, unspecified (04/09/23) Other forms of nystagmus (04/09/23) Essential (primary) hypertension (04/09/23) Difficulty in walking, not elsewhere classified (04/09/23) Dizziness and giddiness (04/09/23) Subjective Subjective Patient reports not feeling bad while laying in bed and had been up to the bathroom without severe symptoms but was somewhat poor historian Objective Data Objective Data Vital Signs: Vital Signs Temp Pulse Resp BP Pulse Ox O2 Del Method 97.5 F L 72 16 158/94 H 95 Room Air 04/09/23 03:49 04/09/23 03:49 04/09/23 03:49 04/09/23 03:49 04/09/23 03:49 04/09/23 03:49 Oxygen Delivery Method Room Air Weight: 108.8 kg Body Mass Index (BMI) 32.5 Intake & Output: Intake and Output for Last 24 Hours 04/07/23 04/08/23 04/09/23 23:59 23:59 23:59 Intake Total 240 / 240 Output Total 200 / 200 Balance 40 / 40 Lab / Micro Data Result Diagrams: 04/09/23 01:55 04/09/23 01:55 Labs: Laboratory Results - last 24 hr 04/09/23 01:49: POC Glucose 166 H 04/09/23 01:55: WBC 5.5, RBC 4.46 L, Hgb 13.2, Hct 40.7, MCV 91.3, MCH 29.6, MCHC 32.4, RDW Std Deviation 49.0 H, RDW Coeff of Dori 14.6, Plt Count 169, MPV 9.6, Immature Gran % (Auto) 0.500, Neut % (Auto) 70.3 H, Lymph % (Auto) 19.7, [place] % (Auto) 6.6, Eos % (Auto) 2.4, Baso % (Auto) 0.5, Absolute Neuts (auto) 3.8, Absolute Lymphs (auto) 1.08, Nucleated RBC % 0 04/09/23 01:55: PT 15.0 H, INR 1.2, APTT 29.6 04/09/23 01:55: Sodium 141, Potassium 3.4 L, Chloride 108 H, Carbon Dioxide 26.0, Anion Gap 7, BUN 16, Creatinine 0.89, Estim Creat Clear Calc 71.45, Est GFR (MDRD) Af Amer 105, Est GFR (MDRD) Non-Af 87, BUN/Creatinine Ratio 18.0, Glucose 158 H, Calcium 8.8, Troponin I High Sens 8 04/09/23 04:32: Triglycerides 54, Cholesterol 131, LDL Cholesterol 67, VLDL Cholesterol 11, HDL Cholesterol 53 Radiography Diagnostic Testing: Radiology Impression Brain CT 04/09/23 01:36 IMPRESSION: 1. No evidence of acute intracranial pathology. 2. Diffuse involutional changes and chronic ischemic small vessel white matter disease. Stroke ASPECTS score 10. AIDOC was utilized to assist in identifying pertinent positive findings. N.B. : The above Results were Read Back by Prateek Ray MD to Markell Sandoval MD, and understanding confirmed on 04/09/2023 01:52:19 (ET). Electronically Signed: Prateek Ray MD at 1:51 EDT , ADDENDUM: 04/09/23 0336 IMPRESSION: undefined Chest X-Ray 04/09/23 01:36 IMPRESSION: 1. Nodular opacity measuring up to 2.3 cm at the level of the peripheral left base may represent a focal infiltrate versus pulmonary nodule. Consider follow-up. 2. No other acute cardiopulmonary disease. Electronically Signed: Prateek Ray MD at 2:46 EDT , Head/Neck CTA 04/09/23 01:36 IMPRESSION: No significant stenosis, thrombosis or aneurysm or dissection. Electronically Signed: Prateek Ray MD at 2:17 EDT , ADDENDUM: 04/09/23 0228 IMPRESSION: No significant stenosis, thrombosis or aneurysm or dissection. N.B. : The above Results were Read Back by Prateek Ray MD to Markell Sandoval MD, and understanding confirmed on 04/09/2023 02:22:03 (ET). Electronically Signed: Prateek Ray MD at 2:17 EDT Reading Location ID and State: [facility] / [place] Tel , Service support , Rhythm Strip Rhythm Strip: Sinus Rhythm Rate: 77 Ectopy: None Physical Exam Narrative General: Alert, no acute distress, somewhat poor historian HEENT: Atraumatic, normocephalic Eyes: Anicteric, normal conjunctiva, extraocular movements intact, pupils equal, did appear to have somewhat sustained nystagmus with far right lateral gaze Neck: Supple Respiratory: Clear to auscultation bilaterally, normal respiratory effort Cardiovascular: Regular rate and rhythm GI: Soft, nontender, nondistended Extremities: No edema Musculoskeletal: Moving all extremities Neuro: No overt focal neurological deficits, cranial nerves II through XII appear to be, [id number] without significant difficulty bilaterally Skin: No rashes appreciated Psych: Cooperative Assessment & Plan Assessment/Plan (1) Unable to ambulate: (2) Vertigo: (3) Hypercholesterolemia: (4) Hypertension: PLAN: Plan #Severe vertigo -No focal deficits to suggest stroke however with significant duration of vertigo and symptoms will pursue MRI at this time, and make sure no posterior stroke. -CTA with no significant stenosis, thrombosis, aneurysm or dissection -CT head with no acute intracranial pathology but did have diffuse involutional changes and chronic ischemic small vessel white matter disease -MRI, Echo, PT, OT, speech evaluation. -Check Lipid panel, A1c -Fall precautions -Neurology consult for evaluation of vertigo -aspiration precautions -Telemetry x 24 hours -Give aspirin x 1 dose -statin -Meclizine as needed -04/09: This a.m. patient woken up from nap and answering questions but somewhat poor historian but does report feeling better and was up to the bathroom slightly before evaluation. MRI, echo, and neuro consults pending. Rest of stroke rule out order set activated pending MRI results #HTN -Hold home antihypertensives to allow for permissive hypertension at this time #Left peripheral lung nodular opacity -Chest x-ray on admission: nodular opacity measuring up to 2.3 cm at the level of the peripheral left base may represent a focal infiltrate versus pulmonary nodule. Consider follow-up -Follow-up imaging as an outpatient #DVT ppx: Heparin subcu Sasha Betts MD Time spent in the patient's overall evaluation,decision-making process, review of diagnostic data, adjustment of management, discussion with other providers, nursing nursing and ancillary staff involved in patient's care documentation, 30 minutes
--- NOTE | 2023-04-09 09:44 | CASEMGMT ---
Addendum entered by Laverne Rucker 04/09/23 10:53: Sw called patient's , Maureen, to ask her to bring in AD paperwork. Pt states that she is on her way to hospital and will bring documents in another day. Pt stated that she has questions regarding VA benefits and if they will help cover costs of current hospitalization. Sw stated sw will look into. STEFANIE Carl, JONATHAN Original Note: Sw presented to bedside, introduced self to patient and explained sw role during current hospitalization. Sw asked patient if he has advanced directives in place at this time. Patient reports that he and his have arrangements in place. Sw asked pt if his could bring documents in so they can get scanned into patient chart. Patient reports that his will be in to visit him later (does not know time) and asked sw to return to talk to her then. STEFANIE Carl, MARINE UNDERWRITER
[2023-04-09 09:48] LABS: Hemoglobin A1c 5.5 % (3.8-5.6)
[2023-04-09] MEDS: Potassium Chloride Oral Tablet 20 MEQ 40 MEQ PO (14:08)
--- NOTE | 2023-04-09 14:59 | CHAPLAIN ---
Type of Pastoral Visit _x__ Initial Visit ___ Follow-up Visit ___ On-call Visit ___ General Patient Visit ___ Spiritual Assessment ___ Family Conference ___ Bereavement ___ Rapid Response ___ Code Blue ___ Other (describe below) Pastoral Care Referral From _x__ Patient ___ Family ___ Nurse ___ Physician ___ Oil Well Perforator Operator ___ Asset Management Coordinator ___ Other (describe below) Sacrament/Intervention _x__ Active listening ___ Anointing ___ Voodoo ___ Bereavement ___ Communion _x__ Rosie exploration ___ _x__ Life review _x__ Prayer ___ Reconciliation ___ Sacrament of Sick ___ Supportive presence ___ Wedding ___ Other (describe below) Pastoral Comments patient is welcoming and expresses his own rosie and that I am a email manager too; pt uses his rosie to help others; pt joined the conversation now when she entered the room; pt states that it is unknown what he needs in body or why but that he prays for this need; pt is encouraging this email manager in what he does;
--- NOTE | 2023-04-09 16:32 | CASEMGMT ---
RN?CM?COMMUNITY MUSIC THERAPIST?CM?to room to meet with patient for initial transition planning/care coordination?assessment.?RN?CM?introduced self and role at [facility].? Pt and voices understanding and consent to?assessment?at this time.? Pt sitting up in chair in room in no distress at this time.? @ bedside. Pt is A/O, has hx of dementia, and is poor historian. answered most of the following information.? Care providers, pharmacy, and demographics verified/updated at this time. PCP: [place] JERONIMO, Vic Patel Specialists: none Preferred Pharmacy:[facility] Insurance: [place]. [place] benefits. had questions re: hospitalization and insurance. Questions answered. states to keep hospital stay billed under [place] for now. Prescription Benefit:?Yes Living Will/HPOA:?Pt has LW and HCPOA, who is his , Maureen LANZAOK: , Maureen Living Arrangements: Lives w/ in 2-story home w/2 steps to enter. FFSU. Indep w/ADL's. does IADL's. Transportation:?Pt and both drive DME: ?Uses no DME and denies needs at this time. Does have a cane, but does not use. Pt may need walker. states they have one they can borrow. HHC/SNF: No hx of either. PT/OT evals reviewed. Pt unsteady and only able to ambulate 5 ' w/use of WW and A of 1 d/t dizziness. Discussed HHC vs OP therapy and unsure what she would like for pt. She was made aware therapy will work w/pt again tomorrow and she can wait to see how he does before making decision. Pt and wish for pt to return home and states has no further concerns with going home at time of discharge.??CM?to follow for any further discharge planning/needs.? Pt and voice no further concerns/needs at this time.? Advised them to ask for?CM?if any further questions/concerns/needs arise.? They voice understanding. PLAN:??Home. Follow for HHC vs OP therapy. Ayesha MATTHEWSN?RN?CM
[2023-04-09] MEDS: Labetalol (Prefilled) 20 MG/4 ML 10 MG IV (20:57)
[2023-04-09] MEDS: 0.9% Saline Lock 10 ML Syringe IV (20:59)
[2023-04-09] MEDS: Heparin Injection (Vial) 5,000 UNIT/ML VIAL 5000 UNIT SC (22:44)
[2023-04-10 00:23] VITALS: BMI 32.5
[2023-04-10 04:02] VITALS: BP 133/70; PULSE 68; RESP 16; TEMP 36.1; O2SAT 98
[2023-04-10 05:16] LABS: Absolute Lymphocyte Count 1.46 X10^3/uL (0.83-4.51); Absolute Neutrophil Count 6.1 X10^3/uL (2.0-7.7); Basophil# 0.03 X10^3/uL; Basophil% 0.4 % (0-1); Eosinophils% 1.2 % (0-5); Hematocrit 44.6 % (40-54); Hemoglobin 14.5 g/dL (13.0-16.5); Lymphocyte # 1.46 X10^3/ul (0.83-4.51); Lymphocyte % 17.3 % (19-41); Mean Corp Hgb Conc 32.5 g/dL (32-36); Mean Corpuscular Hgb 29.9 pg (27.0-32.0); Monocyte% 8.3 % (0-10); NRBC Flagged by Analyzer 0 % (0-5); Neutrophil # 6.12 X10^3/uL (2.7-7.7); Neutrophil % 72.3 % (47-70); Platelet Count 197 K/mm3 (150-450); RBC Distribution Width CV 14.9 % (11.6-14.6); RBC Distribution Width SD 50.7 fl (35.1-43.9); Red Blood Count 4.85 M/mm3 (4.6-6.2); White Blood Count 8.5 K/mm3 (4.4-11.0)
[2023-04-10 05:57] LABS: Anion Gap 4 (5-15); BUN 11 mg/dL (7-18); BUN/Creat Ratio 12.7 RATIO (10-20); Calcium,Total 9.4 mg/dL (8.5-10.1); Chloride 111 mmol/L (98-107); Creatinine, Serum 0.87 mg/dL (0.70-1.30); EST Glomerular Filtration Rate 90 mL/min (>60); Est Glom Filt Rate - Afr Amer 109 mL/min (>60); Estimated Creatinine Clearance 73.09 ml/min; Glucose 107 mg/dL (74-106); Potassium 3.7 mmol/L (3.5-5.1); Sodium Level 141 mmol/L (136-145); T4 Free Direct 1.03 ng/dL (0.76-1.46)
[2023-04-10 07:15] VITALS: O2SAT 98
[2023-04-10 08:03] VITALS: BP 150/90; PULSE 70; RESP 16; TEMP 36.8; O2SAT 94
[2023-04-10] MEDS: Heparin Injection (Vial) 5,000 UNIT/ML VIAL 5000 UNIT SC (08:11)
[2023-04-10] MEDS: Aspirin 81 MG TAB.CHEW PO (08:11)
[2023-04-10] MEDS: hydroCHLOROthiazide 12.5mg 12.5 MG PO (08:11)
[2023-04-10] MEDS: Acetaminophen 325 MG Tablet 650 MG PO (12:15)
[2023-04-10 12:25] VITALS: BMI 32.5
--- NOTE | 2023-04-10 12:54 | CASEMGMT ---
ELI PEREZ in to discuss discharge planning. Reviewed therapy recommendations with patient and . Patient and agreeable to outpatient vestibular therapy. RN CM received script and provided to patient with [facility] information. Patient and denied further needs. ELI PEREZ completed TYLER form with patient. RN CM explained TYLER Form to patient and , patient and voiced understanding. signed TYLER Form as patient has slight confusion. Patient and provided copy of signed TYLER form. Patient has no further questions or concerns at this time.
[2023-04-10 13:56] VITALS: BP 132/91; PULSE 82; RESP 16; TEMP 36.9; O2SAT 94
--- NOTE | 2023-04-10 15:18 | DS.PCM_ITS ---
Providers Date of Admission: 04/09/23 Date of Discharge: 04/10/23 Primary Care Physician: [facility] Reason For Visit: SEVERE VERTIGO Diagnosis Discharge Diagnosis (1) Vertigo: Status: Acute Code(s): R42 - Dizziness and giddiness (2) Hypercholesterolemia: Status: Acute Code(s): E78.00 - Pure hypercholesterolemia, unspecified (3) Hypertension: Status: Chronic Code(s): I10 - Essential (primary) hypertension (4) Unable to ambulate: Status: Acute Code(s): R26.2 - Difficulty in walking, not elsewhere classified Plan: Resolved Plan #Severe vertigo- suspected peripheral, likely BPPV #HTN #Left peripheral lung nodular opacity Medications at Discharge Home Medications hydrochlorothiazide 12.5 mg tablet 12.5 mg PO DAILY 04/09/23 rosuvastatin 5 mg tablet 5 mg PO QHS 04/09/23 aspirin 81 mg chewable tablet 81 mg PO BREAKFAST 30 days #30 tabs 04/10/23 meclizine 25 mg tablet 25 mg PO TID PRN PRN dizzy 3 days #12 tabs 04/10/23 Hospital Course Procedures Transthoracic echo Summary of Care Provided Minutes Spent on Discharge: 32 Hospital Course: 82-year-old male with a history of hypertension and dementia presented to [facility] 04/08 with severe dizziness and spinning. He was brought in for stroke work-up. CT head unremarkable and CTA unrevealing. His MRI was not revealing for acute stroke and echocardiogram with EF of 60% and stage I diastolic dysfunction. Neurology evaluated and felt that this was peripheral and most likely BPPV and that he should be on 81 mg aspirin daily and follow-up with vestibular rehab as an outpatient and recommended meclizine as needed for no more than 3 days and that if symptoms do not improve that he may need to follow-up with ENT. On day of discharge patient was able to get up and ambulate with physical therapy and did fairly well, agreeable to take patient home. Feeling much better day of discharge. Did discuss lung nodule findings and need for follow-up and verbalized understanding. Discharge instructions as followed: DISCHARGE INSTRUCTIONS PLEASE READ *Please take this with you to your next doctors appointment* -You are found to have a small opacity measuring 2.3 cm at the base of your left lung and follow-up imaging is recommended.? This can be ordered on an outpatient basis by your primary care physician for better characterization/to assess for resolution -It is recommended that you take an 81 mg aspirin daily -You will be referred for vestibular rehab -You will be discharged with meclizine to take as needed for 2 to 3 days -If you are not improving with present management please contact the ear nose throat doctor office to schedule an appointment for further evaluation -Please call your primary care provider's office upon discharge to schedule a hospital follow up within 1 week. -For any concerning signs or symptoms please call 911 or proceed to the nearest emergency department Physical Exam Narrative General: Alert, oriented, no apparent distress HEENT: Atraumatic, normocephalic Eyes: extraocular movements grossly intact Neck: Supple Respiratory: normal respiratory effort Cardiovascular: no edema appreciated GI: nondistended Extremities: Moving all extremities Neuro: No overt focal neurological deficits Psych: Cooperative Weight / BMI Weight Weight: 108.8 kg Body Mass Index (BMI) 32.5 ABG / Lab / Microbiology Data Result Diagrams: 04/10/23 03:57 04/10/23 03:57 Laboratory: Laboratory Results - last 24 hr 04/10/23 03:57: WBC 8.5, RBC 4.85, Hgb 14.5, Hct 44.6, MCV 92.0, MCH 29.9, MCHC 32.5, RDW Std Deviation 50.7 H, RDW Coeff of Dori 14.9 H, Plt Count 197, MPV 10.0, Immature Gran % (Auto) 0.500, Neut % (Auto) 72.3 H, Lymph % (Auto) 17.3 L, [place] % (Auto) 8.3, Eos % (Auto) 1.2, Baso % (Auto) 0.4, Absolute Neuts (auto) 6.1, Absolute Lymphs (auto) 1.46, Nucleated RBC % 0 04/10/23 03:57: Sodium 141, Potassium 3.7, Chloride 111 H, Carbon Dioxide 26.0, Anion Gap 4 L, BUN 11, Creatinine 0.87, Estim Creat Clear Calc 73.09, Est GFR (MDRD) Af Amer 109, Est GFR (MDRD) Non-Af 90, BUN/Creatinine Ratio 12.7, Glucose 107 H, Calcium 9.4, TSH 1.00, Free T4 1.03 D/C Instructions Discharge Diet: No restrictions Meaningful Use Info Meaningful Use Diagnoses (Choose all that apply): None applicable Discharge Plan Admission Admit Date/Time: 04/09/23 02:57 Primary Reason for Your Visit: Dizziness Attending Provider: Sasha Betts Primary Care Provider: [facility] Consulting Providers: Alfonso Casanova Instructions Patient Instructions: BPPV, ED Fall Prevention Additional Instructions / Restrictions: DISCHARGE INSTRUCTIONS PLEASE READ *Please take this with you to your next doctors appointment* -You are found to have a small opacity measuring 2.3 cm at the base of your left lung and follow-up imaging is recommended. This can be ordered on an outpatient basis by your primary care physician for better characterization/to assess for resolution -It is recommended that you take an 81 mg aspirin daily -You will be referred for vestibular rehab -You will be discharged with meclizine to take as needed for 2 to 3 days -If you are not improving with present management please contact the ear nose throat doctor office to schedule an appointment for further evaluation -Please call your primary care provider's office upon discharge to schedule a hospital follow up within 1 week. -For any concerning signs or symptoms please call 911 or proceed to the nearest emergency department Discharge Orders/Prescriptions Prescriptions: New meclizine 25 mg Tablet 25 mg PO TID PRN PRN (Reason: dizzy) 3 Days Qty: 12 0RF aspirin 81 mg Tablet,Chewable 81 mg PO BREAKFAST 30 Days Qty: 30 0RF Continued rosuvastatin 5 mg Tablet 5 mg PO QHS hydrochlorothiazide 12.5 mg Tablet 12.5 mg PO DAILY Referrals / Follow Up: [facility] [Outside] - See Referral Note (If you are not improving with present management please contact the ear nose throat doctor office to schedule an appointment for further evaluation) Care Physician,No Primary [Non-Staff] - [facility] - Within 1 Week Disposition Disposition (needs filled in before D/C Order can be placed): Home, Self Care Charges/Coding Visit Charges Inpatient E&M: 07298 Disch Hosp >30min
== END 2023-04-10 17:21 | disposition home or self-care (01) ==
LOC: ED 02:17 → PCU 03:31
PROVIDERS: Admitting Provider Hospitalist; Emergency Provider Emergency Medicine; Visit Provider Internal Medicine
DX: H81.4 Vertigo of central origin (principal); F03.A0 Unspecified dementia, mild, without behavioral disturbance, psychotic disturbance, mood disturbance, and anxiety; E78.00 Pure hypercholesterolemia, unspecified; R11.0 Nausea; I10 Essential (primary) hypertension; Z87.891 Personal history of nicotine dependence; R91.8 Other nonspecific abnormal finding of lung field; R26.2 Difficulty in walking, not elsewhere classified; Z79.899 Other long term (current) drug therapy; R29.701 NIHSS score 1; I44.0 Atrioventricular block, first degree
CPT/HCPCS: 36415; 70450; 70496; 70498; 70551; 71045; 80048; 80061; 82962; 83036; 84439; 84443; 84484; 85025; 85610; 85730; 93005; 93306; 96372; 96374; 96375; 97110; 97162; 97166; 97530; 97535; 99221; 99285; J7030; Q9957; Q9967; A4216; C8929; G0378; J2405

== ENCOUNTER 2023-04-17 14:36 | Outpatient (RCR) | payer MEDICARE, SELFPAY ==
--- NOTE | 2023-04-17 15:29 | HP.PTEVAL ---
Patient's Visit Information JOSÉ MIGUEL BRAVO is a 82 year old M referred to Physical Therapy by Dr. Sasha Betts MD with a diagnosis of vertigo. Date of Evaluation: 04/17/23 Physical Therapist: Duncan Shah, CONCHITAT, OCS, CSCS - Visit Plan Plan: No skilled PT required at this point, vertigo resolved and activity normal with good balance. - Subjective Was in living room on chair walked into bedroom and collapsed and could not move due to spinning. Was conscious buit vomitted. Took to hospital [facility] for two days b/c ear was doing funny things last week Sunday and Sunday. [place] funnyness in L ear and ringing. They did all sorts of test MRi, catscan, blood tests. Things were dizzy in hospital until the next day and given meclizine. Went home Sunday that next night and only needed one pill since he got home. Uses [place] doctor and will f/u end of month. Since then felt pretty good. Is back to normal with walking, getting mail. No more spinning. No lightheadedness. No imblanace or falls. Feels normal but says he is too tired. Sleep is OK but often, says more than usual. 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 Works out with weights a little bit and has done that in the last week. Hobbies: nothing lately. No cane or walker needed now. - Objective Walks into PT slow but steady on firm flat surface. oriented to person and day. Seems to have some short term memory problems as I interview him about incident. is heklpful. Transfers chair and bed I with some back pain. Cervical aROM WFL to 50 rotations and 40 extension without symptoms. UE aROM WFL and strength at 4/5. Sensation UE WNL to gross light touch. - B ahllpike owen and - roll test today. Oculomotor: unremarkable without nystagmus or symptoms in gaze, head shake, VOR, saccades or pursuit. - skew eye deviaiton. - ocular tilt. + L head impulse test slightly - Balance/Special Test Scores Functional Gait Assessment Score: 27 % Disability: 10.0000 CATSIB Score (Max score 120 seconds): 120 Dizziness Score: 0 - Rehabilitation Potential Physical Therapy Diagnosis: h/o vertigo resolved. - Anticipated Interventions Thank you for the opportunity to evaluate your patient. For Medicare and Medicare HMO plans, please review the plan of care and approve it. It will need to be FAXED BACK to us at [phone] for Medicare purposes. For Medicare only, by signing this I certify the plan of care. Please let me know if there are questions or concerns regarding this plan of care. Physician Signature: Date:
== END 2023-04-17 19:00 | disposition home or self-care (01) ==
LOC: PT 14:36
PROVIDERS: Referring Provider Internal Medicine; Visit Provider Internal Medicine
DX: R42 Dizziness and giddiness (principal)
CPT/HCPCS: 97162

== ENCOUNTER → 2024-05-12 | Outpatient (CLI) | payer MEDICARE, SELFPAY ==
--- NOTE | 2024-05-12 11:41 | US_ITS ---
STUDY: SUPERFICIAL ULTRASOUND - LEFT SHOULDER REASON FOR EXAM: Male, 83 years old. left shoulder mass TECHNIQUE: A superficial ultrasound was performed with real-time and static thomson-scale imaging. COMPARISON: None. FINDINGS: There is an ellipsoid shaped heterogeneous appearing solid nodule measuring 3.7 x 3.6 x 1.7 cm which has the appearance of a pilar cyst or less likely lipoma. 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
== END | disposition home or self-care (01) ==
LOC: US 11:39
PROVIDERS: PCP Nurse Practitioner Family; Referring Provider Orthopaedic Surgery Sports Medicine; Visit Provider Orthopaedic Surgery Sports Medicine
DX: M25.512 Pain in left shoulder (principal)
CPT/HCPCS: 76882

== ENCOUNTER 2024-05-19 11:39 | Emergency (ER) | payer MEDICARE, SELFPAY ==
[2024-05-19 11:40] VITALS: BP 169/125; PULSE 113; RESP 16; TEMP 36.6; O2SAT 96; BMI 32.6
--- NOTE | 2024-05-19 11:54 | EX.ED.DYSGE1 ---
HPI History of Present Illness Chief Complaint: Nosebleed Informant: patient, spouse/S.O. and EMS Narrative Narrative: 83-year-old male with a right-sided nosebleed that started spontaneously 3 to 4 hours ago. Most of the history is provided by the spouse, the patient is extremely hard of hearing and does not have his hearing aids. He states that he feels fine except for the bleeding from the right nose. He is not swallowing a lot of blood. This has happened several times in the past. He takes aspirin 81 mg and no anticoagulants or other antiplatelets. No recent injury. [facility] Medical History Left shoulder pain Hyperlipidemia Hypertension Hypercholesterolemia Home Medications ?Medication ?Instructions ?Recorded ?Last Taken ?Type hydrochlorothiazide 12.5 mg tablet 12.5 mg PO DAILY diuretic 04/09/23 Unknown History rosuvastatin 5 mg tablet 5 mg PO QHS cholesterol 04/09/23 Unknown History aspirin 81 mg chewable tablet 81 mg PO BREAKFAST 30 days #30 tabs 04/10/23 Unknown Rx Allergy/AdvReac Type Severity Reaction Status Date / Time Penicillins Allergy Anaphylaxis Verified 05/19/24 11:45 Surgical History Hx of right knee surgery Social History household members: spouse number of children: 2 Smoking Status: Former smoker alcohol intake: current ROS ROS ED Review of Systems ROS Unobtainable: other Details: limited due to very CROW ENT ENT ED: Reports as per HPI and epistaxis Cardiovascular Cardiovascular: Denies racing heartbeat or syncope Respiratory/Chest Respiratory/Chest: Denies dyspnea Gastrointestinal Gastrointestinal: Denies nausea or vomiting Musculoskeletal Musculoskeletal: Denies back pain or neck pain Integumentary Denies rash Neurologic Neurologic: Denies headache(s), paresthesias or weakness EXAM Physical Exam Const Vital Signs: 05/19/24 11:40 Temperature 97.9 F Temperature Source Oral Pulse Rate 113 H Respiratory Rate 16 Blood Pressure 169/125 H Blood Pressure Mean 139 Pulse Ox 96 Oxygen Delivery Method Room Air Positive well nourished and well developed General Appearance ED: well developed and NAD HEENT HEENT Narrative: Mild active dark oozing of blood right naris only none on the left, no significant posterior oropharyngeal blood. No dysphonia or stridor or respiratory distress. Eyes PERRL and EOMs intact bilaterally Chest Wall inspection of chest normal Resp normal respiratory effort Neuro CN's II-XII intact bilaterally and no sensory deficits noted Sensorium / Orientation: alert Motor Exam: strength 5/5 throughout Psych mental status grossly normal Skin no rashes or lesions noted and no wounds [facility] Narrative Medical decision making narrative: Initially tried to get the patient to blow his nose, however he is not able to blow anything out of the right side, and he is also not wanting to put forth much effort in doing so, which is okay. He understands that if we get the bleeding to stop and he has a lot of clots and there may be uncomfortable. I initially placed 2 cc of [place] solution into the right naris, followed by a cotton pledgets soaked in same. This provided decent hemostasis for the next half hour, but upon removing the nasal pledget in order to inspect the right nostril, profuse venous oozing continued. Therefore I packed the right anterior naris with a 5.5 cm inflatable rapid Rhino, inflated with 5 cc of water since this was all the patient to tolerate. He was monitored for the next 15 minutes with no active bleeding or oozing, stable for discharge home and follow-up with ENT 2 days ideally. His blood pressure was elevated 169/125 at initial check, however on reevaluation his systolic blood pressure is 114. Procedures Other Procedures Procedure(s): Epistaxis care, see [facility] Discharge Plan Triage Chief Complaint: Nosebleed ED Provider: Carlos Meyer Dx/Rx/DC Orders Clinical Impression: Acute anterior epistaxis Instructions: ED Epistaxis (Adult) Prescriptions: No Action rosuvastatin 5 mg Tablet 5 mg PO QHS hydrochlorothiazide 12.5 mg Tablet 12.5 mg PO DAILY aspirin 81 mg Tablet,Chewable 81 mg PO BREAKFAST 30 Days Qty: 30 0RF Primary Care Provider: JANNA ALBERTO Referrals: Jas Shipley MD [Med Staff - Active Staff] - 2 Days (Call for appointment, tell them you were an ER patient for a nosebleed and told to f/u for packing removal) JANNA ALBERTO CRNP [Primary Care Provider] - Print Language: Fijian Disposition Disposition: Home, Self Care
[2024-05-19] MEDS: Mixture 30 ML Bottle TOPICAL (12:55)
--- NOTE | 2024-05-19 13:25 | ED.RN ---
patient rang out asking for someone to come back in about his nasal packing. rn enters room explaining to patient we are waiting for doctor to come back in. patient upset and wondering how long it will take. rn states I can't answer that but we are waiting. patient requesting remote for tv. patient is understanding
[2024-05-19 13:56] VITALS: BP 118/82; PULSE 102; RESP 18; O2SAT 93
== END 2024-05-19 13:58 | disposition home or self-care (01) ==
PROVIDERS: Emergency Provider Emergency Medicine; PCP Nurse Practitioner Family; Visit Provider Emergency Medicine
DX: R04.0 Epistaxis (principal); Z79.82 Long term (current) use of aspirin; I10 Essential (primary) hypertension; E78.5 Hyperlipidemia, unspecified; Z87.891 Personal history of nicotine dependence
CPT/HCPCS: 30901; 99282

== ENCOUNTER → 2024-09-11 | Outpatient (CLI) | payer MEDICARE, SELFPAY ==
[2024-09-11 16:23] LABS: Estradiol 19.4 pg/mL; Free T3 2.2 pg/mL (2.18-3.98); T4 Free Direct 0.88 ng/dL (0.76-1.46)
== END | disposition home or self-care (01) ==
PROVIDERS: PCP Nurse Practitioner Family; Referring Provider Preventive Medicine Public Health & General Preventive Medicine; Visit Provider Preventive Medicine Public Health & General Preventive Medicine
DX: C61 Malignant neoplasm of prostate (principal); E03.9 Hypothyroidism, unspecified
CPT/HCPCS: 36415; 82670; 84153; 84403; 84439; 84443; 84481

== ENCOUNTER 2024-10-09 09:20 | Day surgery (SDC) | payer OTHER, SELFPAY ==
[2024-10-09] VITALS (11 sets, daily range): BP systolic 85–173; BP diastolic 56–97; PULSE 54–69; RESP 14–17; TEMP 36.2–36.8; O2SAT 16–96; BMI 31.9
--- NOTE | 2024-10-09 09:40 | PCM.HP.BLA ---
History and Physical Date of Admission: 10/09/24 Chief Complaint: colonoscopy Details: JOSÉ MIGUEL BRAVO, is a 83 M who presents to the office today for establishment with [facility]. Pt was diagnosed with prostate adenocarcinoma 08.03.24. PET scan showing eccentric wall thickening of the sigmoid colon with subtle pericolonic infiltrative change with low grade PSMA avidit w/ recommendation for direct visualization via colonoscopy. Pt has been on oral treatment for the prostate cancer and will start radiation therapy in 2024. Oncology is waiting for him to have a colonoscopy to see if his colon will need treatment as well. He has no GI symptoms. He denies abdominal pain, constipation, diarrhea, heartburn, n/v, melena or hematochezia. His last colonoscopy was around [address] benz. His says she thinks he had a polyp. ROS Const Constitutional: Positive for fatigue; No fever(s) or weight change ENT ENT: No difficulty swallowing Gastro GI: No abdominal pain, belching, bloating, change in bowel habits, change in stool character, coffee ground emesis, constipation, cramping, diarrhea, heartburn, difficulty swallowing, feeling full early, excessive flatus, incontinent of stools, Vomiting blood/hematemesis, Blood in stool, loose stools, Black,tarry stools, nausea/dyspepsia, pain with swallowing, vomiting or other Musc Musculoskeletal: Positive for joint pain, back pain and stiffness Skin Skin: No yellowing of the eye or itchy eyes Psych Psychiatric: No anxiety and No depression Endo Endocrine: Positive for fatigue; No weight change Aller/Imm Allergy/Immunologic: No itchy eyes Fernandez/Lymp Hematologic/Lymphatic: Positive for easy bruising; No easy bleeding Exam Const General: cooperative and comfortable Nutritional Appearance: average body habitus and well nourished [facility] Head: normal to inspection Ears: hearing grossly normal bilaterally Nose: external nose normal Face and sinus: normal facial exam Eyes General: appearance normal, both eyes and all related structures Neck Neck: normal visual inspection Chest Chest palpation & inspection: normal inspection of the chest and normal palpation of entire chest wall Resp Effort & Inspection: normal respiratory effort Auscultation: Bilateral: Clear to Auscultation Cardio Palpation: normal PMI Rate: regular rate Rhythm: regular rhythm GI Inspection: normal to inspection Auscultation: normal bowel sounds Percussion: normal to percussion Palpation: no hepatosplenomegaly Skin General: no rashes or lesions noted Neuro General: patient alert Extrem General: normal to inspection Psych Affect: normal affect Assessment and Plan Assessment and Plan (1) Primary malignant neoplasm of prostate with high risk of recurrence due to Aurora score of 8 to 10 and PSA greater than 20: Status: Acute Plan: This is an 83 yo male pt with prostate adenocarcinoma undergoing oral treatment with plan for radiation in 2024. PET scan showing sigmoid thickening w/ recommendation for colonoscopy to rule out metastatic cancer. He has no GI symptoms. Per pt his last colonoscopy was about 10 years ago without pertinent abnormality. He will be scheduled for a colonoscopy as soon as possible and be placed on our cancelation list if an opening becomes available sooner. -Colonoscopy as soon as possible (2) Sigmoid thickening: Status: Acute Coding Level of Care Code Off vis,new,level 4 Diagnoses Primary malignant neoplasm of prostate with high risk of recurrence due to Aurora score of 8 to 10 and PSA greater than 20 C61 Sigmoid thickening K63.9 I have examined the patient and the H&P has been reviewed. There are no clinical changes since date of exam.
--- NOTE | 2024-10-09 09:49 | PCM.PRE.AN2 ---
ASA Classification* ASA Classification ASA Classification: 2 Assessment & Plan Anesthesia* Anesthesia Assessment Anesthesia Assessment: Discussed sedation and/or anesthesia options, risks, benefits, and alternatives with patient/parents/legal guardian/POA. Questions invited. The patient/parents/legal guardian/POA seems to understand and agrees to proceed with anesthesia plan. Reviewed the physical assessment, medical history, allergy history and patient home medications list prior to surgery/procedure/anesthetic and documented any changes. Performed airway and anesthesia risk assessments. Anesthesia Type Anesthesia Type: MAC History Source History Obtained from:: Patient and Chart Anesthesia Focused Assessment* Temperature: 98.2 F Pulse Rate: 59 Blood Pressure: 173/97 Respiratory Rate: 17 Pulse Ox: 95 Oxygen Delivery Method: Room Air Airway Assessment Mouth opens: >3 cm Mallampati Score: III Teeth Condition: Intact Neck Range of motion (ROM): Limited ROM (Slight decrease in extension.) Focused Labs Anesthesia Preop lab: CBC WBC 8.5 K/mm3 (4.4-11.0) 04/10/23 03:57 RBC 4.85 M/mm3 (4.6-6.2) 04/10/23 03:57 Hgb 14.5 g/dL (13.0-16.5) 04/10/23 03:57 Hct 44.6 % (40-54) 04/10/23 03:57 Plt Count 197 K/mm3 (150-450) 04/10/23 03:57 CHEMISTRY Potassium 3.7 mmol/L (3.5-5.1) 04/10/23 03:57 Sodium 141 mmol/L (136-145) 04/10/23 03:57 BUN 11 mg/dL (7-18) 04/10/23 03:57 Creatinine 0.87 mg/dL (0.70-1.30) 04/10/23 03:57 Glucose 107 mg/dL (74-106) H 04/10/23 03:57 POC Glucose 166 mg/dL (74-106) H 04/09/23 01:49 TSH 1.360 uIU/mL (0.358-3.740) 09/11/24 13:10 COAG PT 15.0 SECONDS (11.7-14.9) H 04/09/23 01:55 Pre-Assessment Diagnosis/Proposed Procedure Planned Operative Procedure(s): CSCOPE Anesthesia History Anesthesia History - cryptologic support specialist: Anesthesia History - cryptologic support specialist Hx Hospitalization No 10/08/24 10:04 Any Problems With Anesthesia No 10/08/24 10:04 Cholinesterase deficiency No 10/08/24 10:04 You/Your Family Experience No 10/08/24 10:04 fever (hyperthermia) with Relationship Recent Exposure to Contagious Disease Does patient have nerve No 10/08/24 10:04 stimulator Patient instructed to have device shut off --Does patient have Pacemaker or ICD? When Was Last Pacemaker Check QUESTION #4 FULL TEXT: You/Your Family Experience fever (hyperthermia) with Anesthesia Last Oral Intake Last Oral intake: Last Oral Intake NPO since Meds taken in AM with sips of water? Meds patient instructed to take am of surgery Any additional information?: Yes NPO since: 08:00 (Patient had black coffee at 8 AM.) Meds taken in AM with sips of water?: Yes PONV PONV - cryptologic support specialist: PONV - cryptologic support specialist Female No 10/08/24 10:04 HX of Motion Sickness No 10/08/24 10:04 HX of N/V After Surgery No 10/08/24 10:04 Non-Smoker Yes 10/08/24 10:04 Duration of Surgery greater No 10/08/24 10:04 than 60 minutes Number of Risk Factors 1 10/08/24 10:04 PONV Score Low Risk 10/08/24 10:04 Height & Weight Height & Weight: Anesthesia: Height & Weight Height 6 ft 09/19/24 10:01 Respiratory Assessment Respiratory Assessment - cryptologic support specialist: Respiratory Tract Infection Hx - cryptologic support specialist Hx Respiratory Tract Infection No 10/08/24 10:04 STOP Sleep Apnea STOP Sleep Apnea - cryptologic support specialist: STOP Sleep Apnea - cryptologic support specialist Hx Hypertension Yes: CONTROLLED WITH MED 10/08/24 10:04 Hx Sleep Apnea No 10/08/24 10:04 CPAP BIPAP Do you snore loudly (louder No 10/08/24 10:04 than talking or can be heard Do you often feel tired/ No 10/08/24 10:04 fatigued/ sleepy during daytime? Has anyone observed you stop No 10/08/24 10:04 breathing during sleep? STOP Results Negative 10/08/24 10:04 QUESTION #5 FULL TEXT : Do you snore loudly (louder than talking or can be heard through closed doors)? Tobacco Use History Tobacco Use History - cryptologic support specialist: Tobacco Use History - cryptologic support specialist Tobacco Use Non-smoker 04/10/23 12:25 Smoking Status Former smoker 10/08/24 10:04 Hx Tobacco Use No 10/08/24 10:04 Years Smoking Packs Smoked per Day Smoking Cessation Date was No - quit smoking greater 10/08/24 10:04 within the last 15 years than 15 years ago Hx Smoking Cessation Date 11/05/89 10/08/24 10:04 Hx Smoking Cessation Counseling Hematologic Medial History Hematologic Hx - cryptologic support specialist: Hematologic Medical Hx - bank manager Hx of Blood Transfusion No 10/08/24 10:04 Hx of Transfusion in last 3 No 10/08/24 10:04 Months Date of Last Transfusion (if within last 3 months) Ever experience any problems No 10/08/24 10:04 with transfusion(s)? Specify any problems Hx of Preganancy in last 3 N/A 10/08/24 10:04 Months Nurse Filling Out Transfusion NBUCHER 10/08/24 10:04 & Questions: Date: 10/08/24 10/08/24 10:04 Time: 10:05 10/08/24 10:04 Patient unable to answer at this time (ie. confused, unrespo /Reproduction History /Reproductive History - cryptologic support specialist: /Reproductive Hx- cryptologic support specialist Hx Now Gestational Age (in weeks): EDC: Hx Hx Para Hx Section SAB PFSH Medical History Wears hearing aid Loss of hearing Wears glasses Alcohol use Arthritis Cancer Prostate disease High cholesterol Easy bruising Former smoker History of echocardiogram History of edema Melanoma Chronic neck pain Pulmonary nodule, left Memory loss Mild emphysema Hiatal hernia Prostate cancer Pilar cyst Hyperlipidemia Hypertension Hypercholesterolemia Home Medications ?Medication ?Instructions ?Recorded ?Last Taken ?Type hydrochlorothiazide 12.5 mg tablet 12.5 mg PO DAILY diuretic 04/09/23 Unknown History rosuvastatin 5 mg tablet 5 mg PO QHS cholesterol 04/09/23 Unknown History carvedilol 6.25 mg tablet 6.25 mg PO BID 09/15/24 10/09/24 History Allergy/AdvReac Type Severity Reaction Status Date / Time Penicillins Allergy Anaphylaxis Verified 10/09/24 09:25 Surgical History Hx of right knee surgery Social History household members: spouse number of children: 2 Smoking Status: Former smoker Tobacco: How many years used: 30 alcohol intake: current Review of Systems (Anesthesia) ROS Narrative System reviewed and no additional complaints, except as documented.
--- NOTE | 2024-10-09 10:15 | COLBX_PTH ---
PATIENT: JOSÉ MIGUEL BRAVO LOC: EN U#:[id number] AGE/SX: 83/M ROOM: RE10/09/[address]: Dr. Riley Enriquez DO : 1940 BED: DIS: 10/09/2024 SPEC #: [id number] RECD: 10/09/24 11:38 STATUS: LEVY HECTOR #: [id number] ALFREDO: 10/09/24 10:[address]: Riley Enriquez DEPT: SURGICAL PATHOLOGY RECD BY: Nadia Mars ENTERED: 10/09/24 12:22 SP TYPE: COLON BX OTHR DR: JONATHAN FRANCIS Tissues: A - Sigmoid colon biopsy B - Rectum, NOS Procedures: Surgery Specimen Level IV HEADER OPERATION: Flexible sigmoidoscopy PRE-OP DIAGNOSIS: Sigmoid thickening TISSUE SUBMITTED: A- Sigmoid biopsy, B- Rectal polyp biopsy MICROSCOPIC DIAGNOSIS A. Sigmoid colon, biopsy: Focal mucosal denudation and mild hyperplastic change. B. Rectal polyp, biopsy: Fragments of hyperplastic polyp. AM. 10/10/2024 MICROSCOPIC DESCRIPTION Slides are reviewed. GROSS DESCRIPTION A. Received in fixative is one container labeled with the patient's name and designated Sigmoid biopsy. The specimen consists of multiple irregular fragments of light flores soft tissue that in aggregate measure 1.0 x 0.5 x 0.1 cm. The specimen is totally submitted in one cassette. B. Received in fixative is one container labeled with the patient's name and designated Rectal polyp biopsy. The specimen consists of two irregular fragments of light flores soft tissue that measures 0.6 x 0.5 x 0.1 cm. The specimen is totally submitted in one cassette. AM. 10/09/2024 TC:5 CPT:28052a7
--- NOTE | 2024-10-09 10:52 | OP.CCLET_ITS ---
10/09/2024 Katarina Gonzalez Re : Colonoscopy procedure for Maciej Watts Dear Amanda This procedure was performed on October. My impressions and recommendations are as follows: Impressions : - Preparation of the colon was unsatisfactory. - Hemorrhoids found on perianal exam. - Diverticulosis in the recto-sigmoid colon and in the sigmoid colon. - Patchy moderate inflammation was found in the sigmoid colon secondary to colitis. Biopsied. - One 5 mm polyp in the rectum, removed with a jumbo cold forceps. Resected and retrieved. - Stool in the rectum, in the recto-sigmoid colon, in the sigmoid colon and in the descending colon. Recommendations : - Discharge patient to home. - Resume previous diet. - Continue present medications. - Await pathology results. - Repeat colonoscopy in 3 months because the bowel preparation was poor. My findings are described in the full procedure note, which is enclosed. If I can be of further assistance, please feel free to contact me at . Sincerely, Riley Enriquez, 10/09/2024 10:52:03 AM This report has been signed electronically.
--- NOTE | 2024-10-09 10:52 | OP.COLON_ITS ---
Patient Name: Maciej Watts Procedure Date: 10/09/2024 10:19 AM Date of : 1940 Age: 83 Procedure: Colonoscopy Indications: Abnormal CT of the GI tract Providers: Riley Enriquez DO Medicines: Monitored Anesthesia Care Patient Profile: This is an 83 year old male. Refer to note in patient chart for documentation of history and physical. Last Colonoscopy: date unknown. Unable to locate last colonoscopy report. Complications: No immediate complications. Procedure: Pre-Anesthesia Assessment: - Prior to the procedure, a History and Physical was performed, and patient medications and allergies were reviewed. The patient is competent. The risks and benefits of the procedure and the sedation options and risks were discussed with the patient. All questions were answered and informed consent was obtained. Patient identification and proposed procedure were verified by the physician in the pre-procedure area. Mental Status Examination: alert and oriented. Airway Examination: normal oropharyngeal airway and neck mobility. Respiratory Examination: clear to auscultation. CV Examination: normal. Prophylactic Antibiotics: The patient does not require prophylactic antibiotics. Prior Anticoagulants: The patient has taken no anticoagulant or antiplatelet agents except for NSAID medication. ASA Grade Assessment: II - A patient with mild systemic disease. After reviewing the risks and benefits, the patient was deemed in satisfactory condition to undergo the procedure. The anesthesia plan was to use monitored anesthesia care (MAC). Immediately prior to administration of medications, the patient was re-assessed for adequacy to receive sedatives. The heart rate, respiratory rate, oxygen saturations, blood pressure, adequacy of pulmonary ventilation, and response to care were monitored throughout the procedure. The physical status of the patient was re-assessed after the procedure. After I obtained informed consent, the scope was passed under direct vision. Throughout the procedure, the patient's blood pressure, pulse, and oxygen saturations were monitored continuously. The colonoscope was introduced through the anus and advanced to the sigmoid colon. The colonoscopy was performed without difficulty. The patient tolerated the procedure well. The quality of the bowel preparation was unsatisfactory. Scope In: 10:36:15 AM Scope Out: 10:43:51 AM Total Procedure Duration Time 0 hours 7 minutes 36 seconds Findings: Hemorrhoids were found on perianal exam. Multiple small and large-mouthed diverticula were found in the recto-sigmoid colon and sigmoid colon. Patchy moderate inflammation characterized by congestion (edema), erosions and erythema was found in the sigmoid colon. Biopsies were taken with a cold forceps for histology. Verification of patient identification for the specimen was done. Estimated blood loss was minimal. A 5 mm polyp was found in the rectum. The polyp was sessile. The polyp was removed with a jumbo cold forceps. Resection and retrieval were complete. Verification of patient identification for the specimen was done. Estimated blood loss was minimal. Extensive amounts of stool was found in the rectum, in the recto-sigmoid colon, in the sigmoid colon and in the descending colon, precluding visualization. Impression: - Preparation of the colon was unsatisfactory. - Hemorrhoids found on perianal exam. - Diverticulosis in the recto-sigmoid colon and in the sigmoid colon. - Patchy moderate inflammation was found in the sigmoid colon secondary to colitis. Biopsied. - One 5 mm polyp in the rectum, removed with a jumbo cold forceps. Resected and retrieved. - Stool in the rectum, in the recto-sigmoid colon, in the sigmoid colon and in the descending colon. Recommendation: - Discharge patient to home. - Resume previous diet. - Continue present medications. - Await pathology results. - Repeat colonoscopy in 3 months because the bowel preparation was poor. Procedure Code(s): --- Professional --- 70264, 52, Colonoscopy, flexible; with biopsy, single or multiple CPT copyright 2021 [employer]. All rights reserved. The codes documented in this report are preliminary and upon hog sticker review may be revised to meet current compliance requirements. Riley Enriquez DO 10/09/2024 10:52:03 AM This report has been signed electronically. Number of Addenda: 0 Note Initiated On: 10/09/2024 10:19 AM
--- NOTE | 2024-10-09 10:54 | PCM.POST.ANE ---
Anesthesia: Postop Eval I Current Vital Signs Temperature: 97.2 F Pulse Rate: 63 Blood Pressure: 85/56 Respiratory Rate: 16 Pulse Ox: 16 Oxygen Delivery Method: Room Air Assessment Airway patent: Yes Spontaneous unlabored respirations: Yes Mental status: Asleep nausea: No Vomiting: No Anesthesia Complication: No Fluid Hydration Crystalloid volume administer (ml): 40 Total IV fluid infused: 40 Progress Note Anesthesia document: Postop Eval 1 completed: Yes
--- NOTE | 2024-10-10 07:47 | PCM.POSTANE2 ---
Anesthesia Postop Eval I Sum Postop Eval Completion status Anesthesia document: Postop Eval 1 completed: Yes Anesthesia Postop Eval I Summary Anesthesia Postop Eval I Summary: Anesthesia Postop Eval I: Assessment Summary Airway patent Yes 10/09/24 10:55 [email or web address] Spontaneous unlabored Yes 10/09/24 10:55 [email or web address] respirations Mental status Asleep 10/09/24 10:55 [email or web address] nausea No 10/09/24 10:55 [email or web address] Vomiting No 10/09/24 10:55 [email or web address] Anesthesia Postop Eval I: Fluid Summary Crystalloid volume administer 40 10/09/24 10:55 [email or web address] (ml) Colloids volume administered ( ml) Blood Product volume administered (ml) Total IV fluid infused 40 10/09/24 10:55 [email or web address] Anesthesia Postop Eval I: Summary Notes Anesthesia Complication No 10/09/24 10:55 [email or web address] Anesthesia Complication Comment: Post-operative progress note Anesthesia: Postop Eval II Evaluation Mental status: Awake Pain Level: 0 nausea: No Vomiting: No
== END 2024-10-09 12:20 | disposition home or self-care (01) ==
LOC: EN 09:21 → AC 09:22
PROVIDERS: PCP Nurse Practitioner Family; Referring Provider Nurse Practitioner Family; Visit Provider Internal Medicine Gastroenterology
PROC: 0DJD8ZZ Inspection of Lower Intestinal Tract, Via Natural or Artificial Opening Endoscopic (ICD-10-PCS; CPT 45378; principal; 2024-10-09 10:10)
DX: K62.1 Rectal polyp (principal); J43.9 Emphysema, unspecified; C61 Malignant neoplasm of prostate; K52.9 Noninfective gastroenteritis and colitis, unspecified; K57.30 Diverticulosis of large intestine without perforation or abscess without bleeding; K64.4 Residual hemorrhoidal skin tags; Z79.899 Other long term (current) drug therapy; I10 Essential (primary) hypertension; E78.00 Pure hypercholesterolemia, unspecified
CPT/HCPCS: 45380; 88305; A4216; J2405

== ENCOUNTER → 2024-12-23 | Outpatient (CLI) | payer OTHER, SELFPAY ==
--- NOTE | 2024-12-23 13:09 | MRI_ITS ---
PROCEDURE: MRI of the pelvis without and with intravenous contrast. REASON FOR EXAM: Prostate cancer. Radiation therapy planning TECHNIQUE: Multiplanar, multisequence MRI images of the pelvis were obtained without and with intravenous contrast. 20 cc Clariscan IV contrast was administered. COMPARISON: PET/CT scan 08/27/2024 FINDINGS: No suspicious osseous lesion of the bony pelvis. The origins of the hamstring complexes are intact. Mild degenerative changes of the hip joints, greatest on the left. Small fat containing left inguinal hernia. There is moderate focal wall thickening of the mid to proximal sigmoid colon on images 11-12 of the axial postcontrast images. This is highly concerning for malignancy/neoplasm. No focal abnormality of the urinary bladder is demonstrated. There is heterogeneous enlargement of the prostate gland, measuring 7 cm in transverse dimension. There are no grossly enlarged pelvic/inguinal lymph nodes. The seminal vesicles are unremarkable. MRI/Pelvis W/WO Contrast IMPRESSION: Heterogeneous enlargement of the prostate gland measuring up to 7 cm. No gross ly enlarged pelvic lymph nodes are demonstrated. No grossly enlarged pelvic lymph nodes are demonstrated. There is focal wall thickening of the mid to proximal sigmoid colon on referenc e images provided above, measuring 5.9 cm in transverse dimension. The appearance is highly concerning for colonic malignan cy. Further evaluation with colonoscopy is recommended. Reading Location: [facility]
== END | disposition home or self-care (01) ==
LOC: MRI 13:05
PROVIDERS: PCP Nurse Practitioner Family; Referring Provider Student in an Organized Health Care Education/Training Program; Visit Provider Student in an Organized Health Care Education/Training Program
DX: C61 Malignant neoplasm of prostate (principal)
CPT/HCPCS: 72197; A9575

== ENCOUNTER 2025-04-06 05:41 | Day surgery (SDC) | payer OTHER, SELFPAY ==
--- NOTE | 2025-04-02 11:51 | PAT.ANESEVAL ---
Pre-Assessment Diagnosis/Proposed Procedure Planned Operative Procedure(s): COLONOSCOPY Anesthesia History Anesthesia History - insole buffer: Anesthesia History - insole buffer Hx Hospitalization No 04/02/25 08:36 Any Problems With Anesthesia No 04/02/25 08:36 Cholinesterase deficiency No 04/02/25 08:36 You/Your Family Experience No 04/02/25 08:36 fever (hyperthermia) with Relationship Recent Exposure to Contagious No 10/09/24 09:48 Disease Does patient have nerve No 04/02/25 08:36 stimulator Patient instructed to have device shut off --Does patient have Pacemaker or ICD? When Was Last Pacemaker Check QUESTION #4 FULL TEXT: You/Your Family Experience fever (hyperthermia) with Anesthesia Last Oral Intake Last Oral intake: Last Oral Intake NPO since Meds taken in AM with sips of water? Meds patient instructed to take am of surgery PONV PONV - insole buffer: PONV - insole buffer Female No 04/02/25 08:36 HX of Motion Sickness No 04/02/25 08:36 HX of N/V After Surgery No 04/02/25 08:36 Non-Smoker Yes 04/02/25 08:36 Duration of Surgery greater No 04/02/25 08:36 than 60 minutes Number of Risk Factors 1 04/02/25 08:36 PONV Score Low Risk 04/02/25 08:36 Height & Weight Height & Weight: Anesthesia: Height & Weight Height 6 ft 02/03/25 11:27 Respiratory Assessment Respiratory Assessment - insole buffer: Respiratory Tract Infection Hx - insole buffer Hx Respiratory Tract Infection No 04/02/25 08:36 STOP Sleep Apnea STOP Sleep Apnea - insole buffer: STOP Sleep Apnea - insole buffer Hx Hypertension Yes: PER PT, CONTROLLED ON 04/02/25 08:36 MED, HIGH AT DR'S Hx Sleep Apnea No 04/02/25 08:36 CPAP No 04/02/25 08:36 BIPAP Do you snore loudly (louder No 04/02/25 08:36 than talking or can be heard Do you often feel tired/ No 04/02/25 08:36 fatigued/ sleepy during daytime? Has anyone observed you stop No 04/02/25 08:36 breathing during sleep? STOP Results Negative 04/02/25 08:36 QUESTION #5 FULL TEXT : Do you snore loudly (louder than talking or can be heard through closed doors)? 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 Specify any problems Hx of Preganancy in last 3 N/A 04/02/25 08:36 Months Nurse Filling Out Transfusion YOSVANY 04/02/25 08:36 & Questions: Date: 04/02/25 04/02/25 08:36 Time: 08:39 04/02/25 08:36 Patient unable to answer at this time (ie. confused, unrespo /Reproduction History /Reproductive History - insole buffer: /Reproductive Hx- insole buffer Hx Now Gestational Age (in weeks): EDC: Hx Hx Para Hx Section SAB PFSH Medical History (Updated 04/02/25 @ 08:47 by Jocelynn Vigil) Excessive bleeding Shortness of breath on exertion Wears hearing aid Loss of hearing Wears glasses Alcohol use Arthritis Cancer Prostate disease High cholesterol Easy bruising Former smoker History of echocardiogram History of edema Melanoma Chronic neck pain Pulmonary nodule, left Memory loss Mild emphysema Prostate cancer Pilar cyst Hyperlipidemia Hypertension Hypercholesterolemia Home Medications ?Medication ?Instructions ?Recorded ?Last Taken ?Type hydrochlorothiazide 12.5 mg tablet 50 mg PO DAILY diuretic 04/09/23 Unknown History rosuvastatin 5 mg tablet 5 mg PO QHS cholesterol 04/09/23 Unknown History donepezil 5 mg tablet 5 mg PO QDAY 01/01/25 Unknown History potassium chloride 20 mEq oral 20 meq PO QDAY 01/01/25 Unknown History packet prednisone 5 mg tablet 5 mg PO QDAY 01/01/25 Unknown History tamsulosin 0.4 mg capsule 0.4 mg PO QHS #30 caps 01/21/25 Unknown Rx abiraterone 250 mg tablet 1,000 mg PO QHS 04/02/25 Unknown History carvedilol 25 mg tablet 25 mg PO DAILY 04/02/25 Unknown History Allergy/AdvReac Type Severity Reaction Status Date / Time Penicillins Allergy Anaphylaxis Verified 04/02/25 08:24 Surgical History (Updated 04/02/25 @ 08:36 by Jocelynn Vigil) History of colonoscopy Hx of right knee surgery Social History household members: spouse number of children: 2 Smoking Status: Former smoker Tobacco: How many years used: 30 alcohol intake: current Audit: Pertinent Findings Pertinent Findings EKG Perinent findings: 04/2023 EKG: SR with 1st degree AV block Echo (EF%) pertinent findings: 04/2023 Echo: EF 60% Normal LV size Stage 1 Diastolic dysfunction Recommendation Anesthesia Recommendation Anesthesia recommendation: OPTIMIZED for anesthesia
[2025-04-06] VITALS (8 sets, daily range): BP systolic 117–160; BP diastolic 82–103; PULSE 54–63; RESP 16–20; TEMP 36.3–37.3; O2SAT 99–100; BMI 31.1
[2025-04-06] MEDS: Lactated Ringers 1,000 ML 15 ML IV (06:19)
--- NOTE | 2025-04-06 06:36 | PCM.PRE.AN2 ---
ASA Classification* ASA Classification ASA Classification: 3 (HTN, Memory loss, hard of hearing, prostate cancer. Please be careful with inducing anesthesia - should not need much propofol.) Assessment & Plan Anesthesia* Anesthesia Assessment Anesthesia Assessment: Discussed sedation and/or anesthesia options, risks, benefits, and alternatives with patient/parents/legal guardian/POA. Questions invited. The patient/parents/legal guardian/POA seems to understand and agrees to proceed with anesthesia plan. Reviewed the physical assessment, medical history, allergy history and patient home medications list prior to surgery/procedure/anesthetic and documented any changes. Performed airway and anesthesia risk assessments. Anesthesia Type Anesthesia Type: General History Source History Obtained from:: Patient and Chart Anesthesia Focused Assessment* Temperature: 97.4 F Pulse Rate: 63 Blood Pressure: 160/103 Respiratory Rate: 18 Pulse Ox: 100 Airway Assessment Mouth opens: >3 cm Mallampati Score: II Neck Range of motion (ROM): Full ROM Focused Labs Anesthesia Preop lab: CBC WBC 8.5 K/mm3 (4.4-11.0) 04/10/23 03:57 04/10/23 RBC 4.85 M/mm3 (4.6-6.2) 04/10/23 03:57 04/10/23 Hgb 14.5 g/dL (13.0-16.5) 04/10/23 03:57 04/10/23 Hct 44.6 % (40-54) 04/10/23 03:57 04/10/23 Plt Count 197 K/mm3 (150-450) 04/10/23 03:57 04/10/23 CHEMISTRY Potassium 3.7 mmol/L (3.5-5.1) 04/10/23 03:57 04/10/23 Sodium 141 mmol/L (136-145) 04/10/23 03:57 04/10/23 BUN 11 mg/dL (7-18) 04/10/23 03:57 04/10/23 Creatinine 0.87 mg/dL (0.70-1.30) 04/10/23 03:57 04/10/23 Glucose 107 mg/dL (74-106) H 04/10/23 03:57 04/10/23 POC Glucose 166 mg/dL (74-106) H 04/09/23 01:49 04/09/23 TSH 1.360 uIU/mL (0.358-3.740) 09/11/24 13:10 09/11/24 COAG PT 15.0 SECONDS (11.7-14.9) H 04/09/23 01:55 04/09/23 Pre-Assessment Diagnosis/Proposed Procedure Planned Operative Procedure(s): COLONOSCOPY Anesthesia History 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 When Was Last Pacemaker Check QUESTION #4 FULL TEXT: You/Your Family Experience fever (hyperthermia) with Anesthesia Last Oral Intake Last Oral intake: Last Oral Intake NPO since 00:00 04/06/25 06:12 Meds taken in AM with sips of Yes 04/06/25 06:12 water? Meds patient instructed to see medlist 04/06/25 06:12 take am of surgery PONV PONV - automotive parts advisor: PONV - automotive parts advisor Female No 04/02/25 08:36 HX of Motion Sickness No 04/02/25 08:36 HX of N/V After Surgery No 04/02/25 08:36 Non-Smoker Yes 04/02/25 08:36 Duration of Surgery greater No 04/02/25 08:36 than 60 minutes Number of Risk Factors 1 04/02/25 08:36 PONV Score Low Risk 04/02/25 08:36 Height & Weight Height & Weight: Anesthesia: Height & Weight Height 6 ft 04/06/25 06:12 Weight: 104 kg 04/06/25 06:12 Body Mass Index (BMI) 31.1 04/06/25 06:12 Respiratory Assessment Respiratory Assessment - automotive parts advisor: Respiratory Tract Infection Hx - automotive parts advisor Hx Respiratory Tract Infection No 04/02/25 08:36 STOP Sleep Apnea STOP Sleep Apnea - automotive parts advisor: STOP Sleep Apnea - automotive parts advisor Hx Hypertension Yes: PER PT, CONTROLLED ON 04/02/25 08:36 MED, HIGH AT DR'S Hx Sleep Apnea No 04/02/25 08:36 CPAP No 04/02/25 08:36 BIPAP Do you snore loudly (louder No 04/02/25 08:36 than talking or can be heard Do you often feel tired/ No 04/02/25 08:36 fatigued/ sleepy during daytime? Has anyone observed you stop No 04/02/25 08:36 breathing during sleep? STOP Results Negative 04/02/25 08:36 QUESTION #5 FULL TEXT : Do you snore loudly (louder than talking or can be heard through closed doors)? Tobacco Use History Tobacco Use History - automotive parts advisor: Tobacco Use History - automotive parts advisor Tobacco Use Non-smoker 04/10/23 12:25 Smoking Status Former smoker 04/02/25 08:36 Hx Tobacco Use No 04/02/25 08:36 Years Smoking Packs Smoked per Day Smoking Cessation Date was No - quit smoking greater 04/02/25 08:36 within the last 15 years than 15 years ago Hx Smoking Cessation Date 11/05/89 04/02/25 08:36 Hx Smoking Cessation Counseling Hematologic Medial History Hematologic Hx - automotive parts advisor: Hematologic Medical Hx - surveyor helper rod Hx of Blood Transfusion No 04/02/25 08:36 Hx of Transfusion in last 3 No 04/02/25 08:36 Months Date of Last Transfusion (if within last 3 months) Ever experience any problems No 04/02/25 08:36 with transfusion(s)? Specify any problems Hx of Preganancy in last 3 N/A 04/02/25 08:36 Months Nurse Filling Out Transfusion MGRIFFITH 04/02/25 08:36 & Questions: Date: 04/02/25 04/02/25 08:36 Time: 08:39 04/02/25 08:36 Patient unable to answer at this time (ie. confused, unrespo /Reproduction History /Reproductive History - automotive parts advisor: /Reproductive Hx- automotive parts advisor Hx Now Gestational Age (in weeks): EDC: Hx Hx Para Hx Section SAB Active Medications Active Medications: Current Medications Generic Name Dose Route Start Last Admin Trade Name Freq PRN Reason Stop Dose Admin Lactated Ringer's 1,000 mls @ 15 mls/hr 04/06/25 06:00 04/06/25 06:19 IV 15 mls/hr .Q48H SATISH Administration PFSH Medical History (Updated 04/02/25 @ 08:47 by Jocelynn Vigil) Excessive bleeding Shortness of breath on exertion Wears hearing aid Loss of hearing Wears glasses Alcohol use Arthritis Cancer Prostate disease High cholesterol Easy bruising Former smoker History of echocardiogram History of edema Melanoma Chronic neck pain Pulmonary nodule, left Memory loss Mild emphysema Prostate cancer Pilar cyst Hyperlipidemia Hypertension Hypercholesterolemia Home Medications ?Medication ?Instructions ?Recorded ?Last Taken ?Type hydrochlorothiazide 12.5 mg tablet 50 mg PO DAILY diuretic 04/09/23 Unknown History rosuvastatin 5 mg tablet 5 mg PO QHS cholesterol 04/09/23 Unknown History donepezil 5 mg tablet 5 mg PO QDAY 01/01/25 Unknown History potassium chloride 20 mEq oral 20 meq PO QDAY 01/01/25 Unknown History packet prednisone 5 mg tablet 5 mg PO QDAY 01/01/25 Unknown History tamsulosin 0.4 mg capsule 0.4 mg PO QHS #30 caps 01/21/25 Unknown Rx abiraterone 250 mg tablet 1,000 mg PO QHS 04/02/25 Unknown History carvedilol 25 mg tablet 25 mg PO DAILY 04/02/25 04/06/25 History Allergy/AdvReac Type Severity Reaction Status Date / Time Penicillins Allergy Anaphylaxis Verified 04/06/25 06:11 Surgical History (Updated 04/02/25 @ 08:36 by Jocelynn Vigil) History of colonoscopy Hx of right knee surgery Social History household members: spouse number of children: 2 Smoking Status: Former smoker Tobacco: How many years used: 30 alcohol intake: current Review of Systems (Anesthesia) ROS Narrative System reviewed and no additional complaints, except as documented.
--- NOTE | 2025-04-06 06:53 | HP.PCM_ITS ---
HPI - General General Date of Admission: 04/06/25 Date of Service: 04/06/25 Chief Complaint: Abnormal CT HPI Narrative JOSÉ MIGUEL BRAVO, is a 84 M who presentsPt was diagnosed with prostate adenocarcinoma 08.03.24. PET scan showing eccentric wall thickening of the sigmoid colon with subtle pericolonic infiltrative change with low grade PSMA avidit w/ recommendation for direct visualization via colonoscopy. Pt has been on oral treatment for the prostate cancer and will start radiation therapy in 2024. Oncology is waiting for him to have a colonoscopy to see if his colon will need treatment as well. He has no GI symptoms. He denies abdominal pain, constipation, diarrhea, heartburn, n/v, melena or hematochezia. His last colonoscopy was around [address] benz. His says she thinks he had a polyp. [facility] Medical History Excessive bleeding Shortness of breath on exertion Wears hearing aid Loss of hearing Wears glasses Alcohol use Arthritis Cancer Prostate disease High cholesterol Easy bruising Former smoker History of echocardiogram History of edema Melanoma Chronic neck pain Pulmonary nodule, left Memory loss Mild emphysema Prostate cancer Pilar cyst Hyperlipidemia Hypertension Hypercholesterolemia Home Medications ?Medication ?Instructions ?Recorded ?Last Taken ?Type hydrochlorothiazide 12.5 mg tablet 50 mg PO DAILY diur etic 04/09/23 Unknown History rosuvastatin 5 mg tablet 5 mg PO QHS cholesterol 03/27 Unknown History donepezil 5 mg tablet 5 mg PO QDAY 01/01/25 Unknow n History potassium chloride 20 mEq oral 20 meq PO QDAY 01/01/25 Unknown History packet prednisone 5 mg tablet 5 mg PO QDAY 01/01/25 Unknow n History tamsulosin 0.4 mg capsule 0.4 mg PO QHS #30 caps 01/21 Unknown Rx abiraterone 250 mg tablet 1,000 mg PO QHS 04/02/25 Unk nown History carvedilol 25 mg tablet 25 mg PO DAILY 04/02/2512/30 History Allergy/AdvReac Type Severity Reaction Status Date / Time Penicillins Allergy Anaphylaxis Verified 04/06/25 06:11 Surgical History History of colonoscopy Hx of right knee surgery Social History household members: spouse number of children: 2 Smoking Status: Former smoker Tobacco: How many years used: 30 alcohol intake: current ROS Constitutional Constitutional: Denies fatigue, fever(s), poor appetite, weight gain or weight loss Gastrointestinal Gastrointestinal: Denies belching, bloating, change in bowel habits, change in stool character, chewing difficulty, coffee ground emesis, constipation, cramping, diarrhea, dyspepsia, dysphagia, early satiety, excessive flatus, fecal incontinence, heartburn, hematemesis, hematochezia, hemorrhoids, loose stools, melena, nausea, odynophagia, rectal bleeding, tenesmus, vomiting or weight changes Vital Signs Vital Signs Vital Signs: 04/06/25 06:12 04/06/25 06:12 04/06/25 06:39 Temperature 97.4 F L 97.4 F L Temperature Source Temporal Pulse Rate 63 63 Respiratory Rate 18 18 Respiratory Pattern Normal Blood Pressure 160/103 H 160/103 H Blood Pressure Mean 122 Blood Pressure Source Monitor Blood Pressure Position Sitting Blood Pressure Location Right Arm Pulse Ox 100 100 Oxygen Delivery Method Room Air Weight Weight: 229 lb 4.492 oz Body Mass Index (BMI) 31.1 Physical Exam Const alert, oriented x3, no apparent distress and healthy appearing General Appearance: cooperative GI normal to inspection, nondistended, normoactive bowel sounds, soft to palpation, non-tender and non-distended Percussion: normal to percussion Rectal Exam: deferred Assessment & Plan Assessment/Plan (1) Sigmoid thickening: PLAN: Assessment and Plan Assessment and Plan (1) Primary malignant neoplasm of prostate with high risk of recurrence due to [place] score of 8 to 10 and PSA greater than 20: Status: Acute Plan: This is an 83 yo male pt with prostate adenocarcinoma undergoing oral treatment with plan for radiation in 2024. PET scan showing sigmoid thickening w/ recommendation for colonoscopy to rule out metastatic cancer. He has no GI symptoms. Per pt his last colonoscopy was about 10 years ago without pertinent abnormality. He will be scheduled for a colonoscopy as soon as possible and be placed on our cancelation list if an opening becomes available sooner. -Colonoscopy as soon as possible (2) Sigmoid thickening: Status: Acute Coding Level of Care Code Off vis,new,level 4 Diagnoses Primary malignant neoplasm of prostate with high risk of recurrence due to [place] score of 8 to 10 and PSA greater than 20 C61 Sigmoid thickening K63.9 I have examined the patient and the H&P has been reviewed. There are no clinical changes since date of exam.
--- NOTE | 2025-04-06 07:39 | OP.COLON_ITS ---
Patient Name: Maicej Watts Procedure Date: 04/06/2025 7:10 AM Date of : 1940 Age: 84 Procedure: Colonoscopy Indications: Abdominal pain in the left lower quadrant, Abnormal CT of the GI tract Providers: Riley Enriquez DO Referring MD: Katarina Gonzalez Medicines: Monitored Anesthesia Care Patient Profile: This is an 84 year old male. Refer to note in patient chart for documentation of history and physical. Last Colonoscopy: several years ago. Complications: No immediate complications. Procedure: Pre-Anesthesia Assessment: - Prior to the procedure, a History and Physical was performed, and patient medications and allergies were reviewed. The patient is competent. The risks and benefits of the procedure and the sedation options and risks were discussed with the patient. All questions were answered and informed consent was obtained. Patient identification and proposed procedure were verified by the physician in the pre-procedure area. Mental Status Examination: alert and oriented. Airway Examination: normal oropharyngeal airway and neck mobility. Respiratory Examination: clear to auscultation. CV Examination: normal. Prophylactic Antibiotics: The patient does not require prophylactic antibiotics. Prior Anticoagulants: The patient has taken no anticoagulant or antiplatelet agents except for NSAID medication. ASA Grade Assessment: II - A patient with mild systemic disease. After reviewing the risks and benefits, the patient was deemed in satisfactory condition to undergo the procedure. The anesthesia plan was to use monitored anesthesia care (MAC). Immediately prior to administration of medications, the patient was re-assessed for adequacy to receive sedatives. The heart rate, respiratory rate, oxygen saturations, blood pressure, adequacy of pulmonary ventilation, and response to care were monitored throughout the procedure. The physical status of the patient was re-assessed after the procedure. After I obtained informed consent, the scope was passed under direct vision. Throughout the procedure, the patient's blood pressure, pulse, and oxygen saturations were monitored continuously. The Colonoscope was introduced through the anus and advanced to the cecum, identified by appendiceal orifice and ileocecal valve. The colonoscopy was performed without difficulty. The patient tolerated the procedure well. The quality of the bowel preparation was poor. Scope In: 7:21:40 AM Scope Withdrawal Time 0 hours 5 minutes 15 seconds Scope Out: 7:34:29 AM Total Procedure Duration Time 0 hours 12 minutes 49 seconds Findings: The perianal and digital rectal examinations were normal. Multiple small and large-mouthed diverticula were found in the recto-sigmoid colon, sigmoid colon, descending colon and splenic flexure. A benign-appearing, intrinsic severe stenosis measuring 6 cm (in length) x 5 mm (inner diameter) was found in the sigmoid colon and was traversed after dilation. A TTS dilator was passed through the scope. Dilation with a 15 mm colonic balloon dilator was performed. The dilation site was examined and showed moderate improvement in luminal narrowing. Estimated blood loss: none. Extensive amounts of stool was found in the entire colon. Impression: - Preparation of the colon was poor. - Diverticulosis in the recto-sigmoid colon, in the sigmoid colon, in the descending colon and at the splenic flexure. 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 Dilated. - Stool in the entire examined colon. - No specimens collected. Recommendation: - Discharge patient to home. - Resume previous diet. - Continue present medications. - Repeat colonoscopy because the bowel preparation was poor. Procedure Code(s): --- Professional --- 43433, Colonoscopy, flexible; with transendoscopic balloon dilation CPT copyright 2021 [employer]. All rights reserved. The codes documented in this report are preliminary and upon casualty underwriter review may be revised to meet current compliance requirements. Riley Enriquez DO 04/06/2025 7:39:08 AM This report has been signed electronically. Number of Addenda: 0 Note Initiated On: 04/06/2025 7:10 AM
--- NOTE | 2025-04-06 07:39 | OP.CCLET_ITS ---
04/06/2025 Katarina Gonzalez Re : Colonoscopy procedure for Maciej Hansenr Amanda This procedure was performed on Sunday, April 06, 2025. My impressions and recommendations are as follows: Impressions : - Preparation of the colon was poor. - Diverticulosis in the recto-sigmoid colon, in the sigmoid colon, in the descending colon and at the splenic flexure. 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 Dilated. - Stool in the entire examined colon. - No specimens collected. Recommendations : - Discharge patient to home. - Resume previous diet. - Continue present medications. - Repeat colonoscopy because the bowel preparation was poor. My findings are described in the full procedure note, which is enclosed. If I can be of further assistance, please feel free to contact me at . Sincerely, Riley Enriquez, 04/06/2025 7:39:08 AM This report has been signed electronically.
--- NOTE | 2025-04-06 07:45 | PCM.POST.ANE ---
Anesthesia: Postop Eval I Current Vital Signs Temperature: 99.1 F Pulse Rate: 54 Blood Pressure: 133/83 Respiratory Rate: 20 Pulse Ox: 99 Oxygen Delivery Method: Room Air Assessment Airway patent: Yes Spontaneous unlabored respirations: Yes Mental status: Awake nausea: No Vomiting: No Anesthesia Complication: No Fluid Hydration Crystalloid volume administer (ml): 300 Total IV fluid infused: 300 Progress Note Anesthesia document: Postop Eval 1 completed: Yes
--- NOTE | 2025-04-06 09:02 | POSTOPAN2_ITS ---
Anesthesia Postop Eval I Sum Postop Eval Completion status Anesthesia document: Postop Eval 1 completed: Yes Anesthesia Postop Eval I Summary Anesthesia Postop Eval I Summary: Anesthesia Postop Eval I: Assessment Summary Airway patent Yes 04/06/25 07:46 BIOLOGICAL SCIENCES INSTRUCTOR.JDEF Spontaneous unlabored Yes 04/06/25 07:46 BIOLOGICAL SCIENCES INSTRUCTOR.JDEF respirations Mental status Awake 04/06/25 07:46 BIOLOGICAL SCIENCES INSTRUCTOR.JDEF nausea No 04/06/25 07:46 BIOLOGICAL SCIENCES INSTRUCTOR.JDEF Vomiting No 04/06/25 07:46 BIOLOGICAL SCIENCES INSTRUCTOR.JDEF Anesthesia Postop Eval I: Fluid Summary Crystalloid volume administer 300 04/06/25 07:46 BIOLOGICAL SCIENCES INSTRUCTOR.JDEF (ml) Colloids volume administered ( ml) Blood Product volume administered (ml) Total IV fluid infused 300 04/06/25 07:46 BIOLOGICAL SCIENCES INSTRUCTOR.JDEF Anesthesia Postop Eval I: Summary Notes Anesthesia Complication No 04/06/25 07:46 BIOLOGICAL SCIENCES INSTRUCTOR.JDEF Anesthesia Complication Comment: Post-operative progress note Anesthesia: Postop Eval II Evaluation Mental status: Awake Pain Level: 0 nausea: No Vomiting: No Complications Anesthesia Complication: No
--- NOTE | 2025-04-06 09:02 | PCM.POSTANE2 ---
Anesthesia Postop Eval I Sum Postop Eval Completion status Anesthesia document: Postop Eval 1 completed: Yes Anesthesia Postop Eval I Summary Anesthesia Postop Eval I Summary: Anesthesia Postop Eval I: Assessment Summary Airway patent Yes 04/06/25 07:46 BACKEND PYTHON DEVELOPER.JDEF Spontaneous unlabored Yes 04/06/25 07:46 BACKEND PYTHON DEVELOPER.JDEF respirations Mental status Awake 04/06/25 07:46 BACKEND PYTHON DEVELOPER.JDEF nausea No 04/06/25 07:46 BACKEND PYTHON DEVELOPER.JDEF Vomiting No 04/06/25 07:46 BACKEND PYTHON DEVELOPER.JDEF Anesthesia Postop Eval I: Fluid Summary Crystalloid volume administer 300 04/06/25 07:46 BACKEND PYTHON DEVELOPER.JDEF (ml) Colloids volume administered ( ml) Blood Product volume administered (ml) Total IV fluid infused 300 04/06/25 07:46 BACKEND PYTHON DEVELOPER.JDEF Anesthesia Postop Eval I: Summary Notes Anesthesia Complication No 04/06/25 07:46 BACKEND PYTHON DEVELOPER.JDEF Anesthesia Complication Comment: Post-operative progress note Anesthesia: Postop Eval II Evaluation Mental status: Awake Pain Level: 0 nausea: No Vomiting: No Complications Anesthesia Complication: No
== END 2025-04-06 08:26 | disposition home or self-care (01) ==
LOC: EN 05:41 → AC 05:42
PROVIDERS: PCP Nurse Practitioner Family; Referring Provider Nurse Practitioner Family; Visit Provider Internal Medicine Gastroenterology
PROC: 0DJD8ZZ Inspection of Lower Intestinal Tract, Via Natural or Artificial Opening Endoscopic (ICD-10-PCS; CPT 45378; principal; 2025-04-06 06:55)
DX: K56.609 Unspecified intestinal obstruction, unspecified as to partial versus complete obstruction (principal); J43.9 Emphysema, unspecified; C61 Malignant neoplasm of prostate; I10 Essential (primary) hypertension; K57.30 Diverticulosis of large intestine without perforation or abscess without bleeding; Z87.891 Personal history of nicotine dependence; E78.00 Pure hypercholesterolemia, unspecified
CPT/HCPCS: 45386; J2405

== ENCOUNTER 2025-08-28 10:57 | Emergency (ER) | payer OTHER, SELFPAY ==
[2025-08-28 10:58] VITALS: BP 200/121; PULSE 81; RESP 16; TEMP 36.7; O2SAT 98; BMI 30.9
--- NOTE | 2025-08-28 11:39 | VDLE_ITS ---
Reason For Study Reason For Study: RLE Swelling RIGHT LEFT GSV is normal. CFV is compressible, spontaneous, phasic, competent, CFV is compressible, spontaneous, phasic, competent and demonstrates normal augmentation. and demonstrates normal augmentation. FV is compressible, spontaneous, phasic, competent and demonstrates normal augmentation. POP V is compressible, spontaneous, phasic, competent and demonstrates normal augmentation. T/P Trunk is compressible. PTV is compressible. RT PerV is compressible. Procedure This is a venous duplex using B-mode, color flow and spectral Doppler. Exam performed portable in ED. The exam was diagnostic. A preliminary report was called and/or faxed to Dr. Partida. VL/Venous Duplex US, Unilateral Interpretation Summary Deep veins of the right lower extremity are patent and compressible segmentally . There is no evidence of right lower extremity deep vein thrombosis. Valvular competence appears intact within the p roximal deep venous system on the right . The right great saphenous vein appears patent and compressible segmentally. The left common femoral vein is patent and compressible . Ordering Physician: Giovanna Partida Referring Physician: Vic Patel Performed By: Alvaro Cox RVT
--- NOTE | 2025-08-28 11:45 | EDS_ITS ---
HPI History of Present Illness Chief Complaint: Lower Extremity Injury Narrative Narrative: Patient is a 84-year-old male presenting to the emergency department for right lower leg swelling. Patient and at bedside are both very poor historians. They state they are unsure when the swelling started because he always wears pants. When asked how long he has had the discomfort in his leg for he states maybe 2 or 3 days. Denies any trauma or falls. He is currently being treated for prostate cancer. Denies any history of DVT or PE. Denies any recent travel, hospitalizations or surgeries. Denies any leg numbness or weakness. [facility] Medical History Excessive bleeding Shortness of breath on exertion Wears hearing aid Loss of hearing Wears glasses Alcohol use Arthritis Cancer Prostate disease High cholesterol Easy bruising Former smoker History of echocardiogram History of edema Melanoma Chronic neck pain Pulmonary nodule, left Memory loss Mild emphysema Prostate cancer Pilar cyst Hyperlipidemia Hypertension Hypercholesterolemia Home Medications ?Medication ?Instructions ?Recorded ?Last Taken ?Type hydrochlorothiazide 12.5 mg tablet 50 mg PO DAILY diur etic 04/09/23 Unknown History rosuvastatin 5 mg tablet 5 mg PO QHS cholesterol 03/27 Unknown History donepezil 5 mg tablet 5 mg PO QDAY 01/01/25 Unknow n History potassium chloride 20 mEq oral 20 meq PO QDAY 01/01/25 Unknown History packet prednisone 5 mg tablet 5 mg PO QDAY 01/01/25 Unknow n History tamsulosin 0.4 mg capsule 0.4 mg PO QHS #30 caps 01/21 Unknown Rx abiraterone 250 mg tablet 1,000 mg PO QHS 04/02/25 Unk nown History carvedilol 25 mg tablet 25 mg PO DAILY 04/02/25 06/0 12/30 History Allergy/AdvReac Type Severity Reaction Status Date / Time Penicillins Allergy Anaphylaxis Verified 08/28/25 11:02 Surgical History History of colonoscopy Hx of right knee surgery Social History household members: spouse number of children: 2 Smoking Status: Former smoker Tobacco: How many years used: 30 alcohol intake: current ROS ROS ED ROS Narrative See HPI EXAM Physical Exam Narrative Exam Narrative: Vital signs: Reviewed General: Alert and oriented x 3. No acute distress HEENT: Head is normocephalic and atraumatic, sinuses nontender, pupils equal round and reactive. Nares are patent. Oropharynx and throat exams normal. Neck: Supple without lymphadenopathy nontender Cardiovascular: Regular rate and rhythm, no murmurs. No rubs or gallops. Normal S1 and S2 Respiratory: Clear to auscultation bilaterally. No wheezes, rales, rhonchi Abdominal: Soft and nontender. Normal bowel sounds. No guarding or rebound. Nonsurgical abdomen Extremities: Asymmetric swelling noted to the right calf. No palpable cords. Compartments are soft. No tenderness to palpation of the calf, tib-fib or ankle/foot. There is no erythema or warmth. DP and PT pulses are intact bilaterally. Plantarflexion and dorsiflexion with 5 out of 5 strength. Sensation intact. Skin: No rash or redness. No wounds. Neurological: Cranial nerves II through XII are grossly intact. Normal strength and sensation. Normal cerebellar function The rest of the physical exam is unremarkable Const Vital Signs: 08/28/25 10:58 08/28/25 11:57 08/28/25 13:05 Temperature 98.1 F 98.7 F 98.7 F Temperature Source Temporal Oral Pulse Rate 81 62 59 L Respiratory Rate 16 16 15 Blood Pressure 200/121 H 165/96 H 166/101 H Blood Pressure Mean 147 119 122 Pulse Ox 98 98 98 Oxygen Delivery Method Room Air Room Air MDM MDM MDM Narrative Medical decision making narrative: Patient is a 84-year-old male presenting to the emergency department for right lower extremity swelling and discomfort. Patient was seen and examined. Vitals are stable. He is hypertensive at 200/121 however it is noted that he has a history of hypertension and becomes more hypertensive when at the doctors. Patient resting bed comfortably no acute distress. No reason for x-ray imaging of the leg, no trauma or falls. Patient has no wounds to suggest cellulitis or abscess. No chest pain or shortness of breath and swelling only unilaterally not consistent with CHF, kidney or liver dysfunction. Ultrasound of the leg was ordered to rule out DVT given his cancer history and swelling with discomfort. Ultrasound is negative. Patient was instructed to wear compression stockings and to follow-up with his PCP for repeat ultrasound in 1 week if he continues to have swelling. Patient discharged from the Emergency Department. I do not feel that the patient's evaluation reveals any acute reason for admission at this time. I instructed them to either follow-up with their primary care physician or promptly return to the Emergency Department for reevaluation should symptoms worsen or new symptoms develop. I explained what symptoms would indicate the need to return to the em ergency department. Shared decision making was used. The patient voiced understanding of the treatment plan and is agreeable with it. Clinical impression: Right leg swelling History & Record Review Discussion w/independent historian: Patient and Significant other Discharge Plan Triage Chief Complaint: Lower Extremity Injury ED Provider: Giovanna Partida Dx/Rx/DC Orders Clinical Impression: Right leg swelling Instructions: ED Peripheral Edema, Unilateral Prescriptions: No Action donepezil 5 mg tablet 5 mg PO QDAY prednisone 5 mg tablet 5 mg PO QDAY potassium chloride 20 mEq packet 20 meq PO QDAY tamsulosin 0.4 mg capsule 0.4 mg PO QHS Qty: 30 5RF Rx Instructions: take one tab PO qHS rosuvastatin 5 mg Tablet 5 mg PO QHS hydrochlorothiazide 12.5 mg Tablet 50 mg PO DAILY abiraterone 250 mg tablet 1,000 mg PO QHS Rx Instructions: must be taken on empty stomach, at least 1 hr before or 2 hrs after a meal/food carvedilol 25 mg tablet 25 mg PO DAILY Rx Instructions: must administer with a meal/food Primary Care Provider: JANNA ALBERTO Referrals: JANNA ALBERTO CRNP [Primary Care Provider, Family Practice] - As soon as possible Activity Restrictions/Additional Instructions: Follow up with your primary care doctor in 1 week for a repeat ultrasound if you continue to have swelling. Your evaluation in the Emergency Department did not reveal any acute reason for admission. However, I want to emphasize that you may be early in the course of a disease process or illness even if it is not present. For this reason you should follow-up within 24 hours for reevaluation with either your primary care physician or if necessary back here in the Emergency Department. You should return to the Emergency Department immediately if your symptoms worsen or new symptoms develop. Print Language: Amharic Disposition Disposition: Home, Self Care Discharge Date/Time: 08/28/25 13:08
[2025-08-28 11:57] VITALS: BP 165/96; PULSE 62; RESP 16; TEMP 37.1; O2SAT 98
[2025-08-28 13:05] VITALS: BP 166/101; PULSE 59; RESP 15; TEMP 37.1; O2SAT 98
== END 2025-08-28 13:08 | disposition home or self-care (01) ==
PROVIDERS: Emergency Provider Student in an Organized Health Care Education/Training Program; PCP Nurse Practitioner Family; Visit Provider Student in an Organized Health Care Education/Training Program
DX: M79.89 Other specified soft tissue disorders (principal); J43.9 Emphysema, unspecified; C61 Malignant neoplasm of prostate; Z87.891 Personal history of nicotine dependence; I10 Essential (primary) hypertension; E78.00 Pure hypercholesterolemia, unspecified
CPT/HCPCS: 93971; 99282